=== PATIENT | male | born 1945 ===

== ENCOUNTER 2023-12-26 11:05 | Outpatient (REF) | payer MEDICARE, MEDICAID, SELFPAY ==
[2023-12-26 13:09] LABS: MANUAL DIFF FLAG NO
[2023-12-26 13:17] LABS: Basophils Percent Auto 0.6 % (0-2); Eosinophils Absolute Auto 0.1 X10*3/uL (0.0-0.4); Hematocrit 43.1 % (42.0-52.0); Hemoglobin 14.1 g/dl (14.0-18.0); Imm Gran Abs Auto 0.02 X10*3/uL (0.00-0.03); Imm Gran Pct Auto 0.3 % (0.0-0.4); Lymphocytes Absolute Auto 1.8 X10*3/uL (1.2-4.9); Lymphocytes Percent Auto 25.8 % (20-40); Mean Corpuscular HGB Conc 32.7 g/dl (31.0-36.0); Mean Corpuscular Hemoglobin 29.4 pg (27.0-33.0); Mean Platelet Volume 9.9 fL (9.4-12.4); Monocytes Absolute Auto 0.6 X10*3/uL (0.1-1.2); Monocytes Percent Auto 8.1 % (2-11); Neutrophils Absolute Auto 4.3 x10*3/uL (2.0-8.3); Neutrophils Percent Auto 64.2 % (45-73); Platelet Count 194 X10*3/uL (160-400); Red Blood Count 4.79 X10*6/uL (4.60-5.80); Red Cell Distribution Width 13.6 % (11.0-16.0); White Blood Count 6.8 X10*3/uL (4.8-10.8)
[2023-12-26 13:55] LABS: Creatinine Urine 283.61 mg/dL; Microalbum/Creatinine Ratio Ur 16.2 ug/mg cr (<30)
[2023-12-26 13:59] LABS: Alanine Aminotransferase 22 U/L (0-40); Albumin Level 4.1 g/dL (3.5-5.0); Alkaline Phosphatase 56 U/L (39-117); Anion Gap 15 (12-20); Aspartate Amino Transferase 22 U/L (5-37); Blood Urea Nitrogen 15 mg/dL (9-16); Calcium 9.9 mg/dL (8.4-10.2); Carbon Dioxide 25 mmol/L (22-29); Chloride 105 mmol/L (96-108); Cholesterol 140 mg/dL (<200); Estimated Glomerular Filt Rate > 60; Glucose Random 87 mg/dL (60-115); HDL Cholesterol 37 mg/dL (>40); LDL Cholesterol Calculated 88 mg/dL (<100); Potassium 4.4 mmol/L (3.3-5.1); Sodium 141 mmol/L (135-145); TSH reflex Free T4 3.59 uIU/mL (0.32-4.0); Total Protein 7.1 g/dL (6.5-8.0); Triglycerides 78 mg/dL (<150)
[2023-12-26 14:00] LABS: Folate 9.8 ng/mL (> or = 4.0); Vitamin B12 316 pg/mL (200-900)
[2023-12-27 09:33] LABS: RPR Rapid Plasma Reagin NON-REACTIVE (NON-REACTIVE)
== END 2023-12-26 11:06 | disposition home or self-care (01) ==
LOC: HO.HHCL 11:05
PROVIDERS: Visit Provider General Practice
DX: E11.40 Type 2 diabetes mellitus with diabetic neuropathy, unspecified (principal); R41.89 Other symptoms and signs involving cognitive functions and awareness; Z11.3 Encounter for screening for infections with a predominantly sexual mode of transmission; E08.29 Diabetes mellitus due to underlying condition with other diabetic kidney complication
CPT/HCPCS: 36415; 80053; 80061; 82043; 82570; 82607; 82746; 84443; 85025; 86592

== ENCOUNTER 2024-03-29 11:13 | Outpatient (REF) | payer MEDICARE, MEDICAID, SELFPAY ==
[2024-03-29 13:09] LABS: Vitamin B12 365 pg/mL (200-900)
[2024-03-30 04:04] LABS: Syphilis Screen Nonreactive (Nonreactive)
[2024-03-30 21:14] LABS: Lyme Abs Screen <0.90 index
== END 2024-03-29 11:14 | disposition home or self-care (01) ==
LOC: HO.LAB 11:13
PROVIDERS: Visit Provider Psychiatry & Neurology Neurology
DX: F03.90 Unspecified dementia, unspecified severity, without behavioral disturbance, psychotic disturbance, mood disturbance, and anxiety (principal)
CPT/HCPCS: 36415; 82607; 86617; 86618; 86780

== ENCOUNTER 2024-03-30 10:03 | Outpatient (REF) | payer MEDICARE, MEDICAID, SELFPAY ==
[2024-03-30 11:55] LABS: MANUAL DIFF FLAG NO
[2024-03-30 12:05] LABS: Basophils Percent Auto 0.7 % (0-2); Eosinophils Absolute Auto 0.1 X10*3/uL (0.0-0.4); Eosinophils Percent Auto 1.8 % (0-4); Hemoglobin 13.9 g/dl (14.0-18.0); Imm Gran Abs Auto 0.01 X10*3/uL (0.00-0.03); Imm Gran Pct Auto 0.2 % (0.0-0.4); Lymphocytes Absolute Auto 1.5 X10*3/uL (1.2-4.9); Lymphocytes Percent Auto 25.4 % (20-40); Mean Corpuscular HGB Conc 33.9 g/dl (31.0-36.0); Mean Corpuscular Hemoglobin 30.3 pg (27.0-33.0); Mean Corpuscular Volume 89.3 fL (80.0-98.0); Monocytes Absolute Auto 0.5 X10*3/uL (0.1-1.2); Monocytes Percent Auto 7.9 % (2-11); Neutrophils Absolute Auto 3.8 x10*3/uL (2.0-8.3); Platelet Count 189 X10*3/uL (160-400); Red Blood Count 4.59 X10*6/uL (4.60-5.80); Red Cell Distribution Width 13.5 % (11.0-16.0)
[2024-03-30 12:41] LABS: Alanine Aminotransferase 26 U/L (0-40); Alkaline Phosphatase 54 U/L (39-117); Anion Gap 10 (12-20); Aspartate Amino Transferase 20 U/L (5-37); Bilirubin Total 0.9 mg/dL (0.0-1.0); Blood Urea Nitrogen 14 mg/dL (9-16); Calcium 9.8 mg/dL (8.4-10.2); Carbon Dioxide 27 mmol/L (22-29); Chloride 107 mmol/L (96-108); Estimated Glomerular Filt Rate > 60; Glucose Random 88 mg/dL (60-115); Potassium 4.4 mmol/L (3.3-5.1); Sodium 140 mmol/L (135-145); Total Protein 6.9 g/dL (6.5-8.0)
== END 2024-03-30 10:04 | disposition home or self-care (01) ==
LOC: HO.HHCL 10:03
PROVIDERS: Visit Provider Internal Medicine
DX: L40.9 Psoriasis, unspecified (principal)
CPT/HCPCS: 36415; 80053; 85025

== ENCOUNTER 2025-01-22 14:01 | Outpatient (REF) | payer MEDICARE, MEDICAID, SELFPAY ==
--- OUTSIDE RECORDS SUMMARY | 2025-01-22 14:52 | XMS_ITS | Encounter Summary ---
Author Organization [employer] Address [address] [facility] [address] [place] [address] Care Team Providers Care Business Objects Analyst Name Role Phone Hortencia Gamboa MD Primary Care Provider [phone] Encounter Details Date Type Department Care Team (Late st Contact Info) Description 02/14/2024 Orders Only [facility] MEDICINE [address] [place], [place] [phone] Juan Koo MD [address] [place] [address] Social History Tobacco Use Types Packs/Day Years Used Date Smoking Tobacco: Never Passive Smoke Exposure: Never Smokeless Tobacco: Never Alcohol Use Standard Drinks/Week Comments Never 0 (1 standard drink = 0.6 oz pur e alcohol) Depression Answer Date Recorded Patient Health Questionnaire-9 Score 0 09/20/2023 Patient Health Questionnaire-9 Score 0 09/20/2023 Last PHQ-9: Questionnaire Data Not on file 0 09/20/2023 Housing Stability Answer Date Recorded What is your housing situation today? I have zaria mallory 09/20/[address] you li ve. Do you have problems with any of the following? None of the above 09/20/2023 Food Insecurity Answer Date Recorded Within the past 12 months, y ou worried that your food would run out before you got money to buy more: Never True 09/20/2023 Within the past 12 months,th e food you bought just didn't last and you didn't have enough money to get more: Never True 11/2023 Transportation Answer Date Recorded In the past 12 months, has l ack of transportation kept you from medical appts, meetings, work or from getting things needed for daily living? No 09/20/2023 Utilities Answer Date Recorded In the past 12 months, has t he electric, gas, oil or water company threatened to shut off services in your home? No 09/20/2023 Depression Answer Date Recorded Patient Health Questionnaire-2 Score 0 09/20/2023 Sex and Gender Information Value Date Recorded Sex Assigned at Male 05/17/2022 10:14 AM EDT Legal Sex Male 10:14 AM EDT Gender Identity Male 05/17/2022 10:14 AM EDT Sexual Orientation Choose not to disclose 2021 10:14 AM EDT documented as of this encounter Plan of Treatment Upcoming Encounters Date Type Department Care Team (Late st Contact Info) Description 02/12/2025 10:15 AM EDT Office Visit [facility] MED[facility]INE [address] [place] [id number] Hortencia Gamboa MD [address] [place] [address] documented as of this encounter Visit Diagnoses Not on filedocumented in this encounter Additional Health Concerns Assessment Noted Time PHQ-9 Depression Total Score: 0 09/20/19 24 9:48 AM EST documented as of this encounter Care Teams Business Objects Analyst Relationship Specialty Start Date End Date Hortencia Gamboa MD [address] [place] [id number] PCP - General Family Medicine 03/10/22 documented as of this encounter
--- OUTSIDE RECORDS SUMMARY | 2025-01-22 14:52 | XMS_ITS | Patient Health Record ---
Author Organization [facility] Address [address] [facility] [place] [address] Support Name Relationship Address Phone Esteban Scherer Guarantor Unknown Unav ailable Reason For Referral No Information Plan Of Treatment No Information Insurance Providers Payer Name Payer Address Payer Phone Subscriber Number Group Number Insured Name Patient Relationship to Insured Coverage Start Date Coverage End Date [facility] [address] [address] [place] [phone] [id number] Esteban Wood Self - patient is the insured
[2025-01-22 17:21] LABS: MANUAL DIFF FLAG NO
[2025-01-22 17:24] LABS: Appearance Urine Clear; Glucose Urine UA Negative (Negative); PH 6.5 (5.0-9.0); Specific Gravity - Urine 1.015 (1.005-1.025)
[2025-01-22 17:37] LABS: Hematocrit 40.9 % (42.0-52.0); Hemoglobin 13.6 g/dl (14.0-18.0); Imm Gran Abs Auto 0.03 X10*3/uL (0.00-0.03); Imm Gran Pct Auto 0.4 % (0.0-0.4); Lymphocytes Absolute Auto 1.6 X10*3/uL (1.2-4.9); Mean Corpuscular HGB Conc 33.3 g/dl (31.0-36.0); Mean Corpuscular Hemoglobin 29.8 pg (27.0-33.0); Mean Corpuscular Volume 89.7 fL (80.0-98.0); NRBC Abs Auto 0.000 X10*3/uL (0.0-0.012); NRBC Pct Auto 0.0 /100WBC (0.0-0.2); Platelet Count 225 X10*3/uL (160-400); Red Blood Count 4.56 X10*6/uL (4.60-5.80); White Blood Count 7.7 X10*3/uL (4.8-10.8)
[2025-01-22 17:54] LABS: Total Protein Urine Random < 7 mg/dL (<12)
[2025-01-22 18:01] LABS: Alanine Aminotransferase 33 U/L (0-40); Albumin Level 4.0 g/dL (3.5-5.0); Alkaline Phosphatase 60 U/L (39-117); Anion Gap 10 (12-20); Aspartate Amino Transferase 30 U/L (5-37); Blood Urea Nitrogen 16 mg/dL (9-16); Calcium 9.4 mg/dL (8.4-10.2); Carbon Dioxide 29 mmol/L (22-29); Chloride 104 mmol/L (96-108); Estimated Glomerular Filt Rate > 60; Potassium 4.4 mmol/L (3.3-5.1); Sodium 139 mmol/L (135-145); Total Protein 6.9 g/dL (6.5-8.0)
== END 2025-01-22 14:02 | disposition home or self-care (01) ==
LOC: HO.HHCL 14:01
PROVIDERS: PCP General Practice; Visit Provider Internal Medicine
DX: M79.89 Other specified soft tissue disorders (principal)
CPT/HCPCS: 36415; 80053; 81001; 82570; 84156; 85025; 85652; 86140

== ENCOUNTER 2025-02-21 12:22 | Outpatient (AMB) | payer MEDICARE, MEDICAID, SELFPAY ==
--- OUTSIDE RECORDS SUMMARY | 2016-02-27 05:48 | XMS_ITS | Continuity of Care Document ---
Author Organization [facility] Address [address] [place] [address] Phone Care Team Providers Care Pediatric Pathologist Name Role Phone Rafael Zuñiga MD Unavailable Unavailable Allergies, Adverse Reactions, Alerts Substance [...] [facility], [address] , [place], [place], [id number], [place] tel:[phone] [facility] No Information 6 [address] [place], [place], [id number] , [place]. tel:[phone] Office/outpt [facility], [address] , [place], [place], [id number], [place] tel:[phone] [facility] Memory Loss (chief complaint) Memory Loss 6 Zara Hall. [address], [place], [place], [id number] , [place]. tel: [phone] Referring Provider: Tj Feng [address], [place], [address]. tel:[phone] Family History Family Member Type Diagnosis Age At Onset Problem (finding) Family history of Heart Conditions Problem (finding) Family history of Diabe shimon Payers Payer name Insurance type Covered alliance party ID Authoriza tion(s) SIMPLY MEDICARE MB [id number] Social History Type Description Quantity Date Captured [...] No Information Instructions Date Instruction Additional Infor mation Open brain MRILabs Related to Me stefan Loss Assessments Type Assessment Date No Information Patient Care Teams Name Effective Dates (start - stop) Status Members No Information
--- NOTE | 2025-02-21 12:26 | A.OFFVIS_ITS ---
Intake Visit Reasons: dementia Allergies atorvastatin (From Lipitor) Allergy (Unknown, Verified 02/15/25 08:52) Unknown rosiglitazone (From Avandia) Allergy (Unknown, Verified 02/15/25 08:52) Unknown HPI Comments Details: 79 years old man with dementia with behavioral symptomatology including agitation. 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 Apparently he was getting more and more confused at night and sometime hallucinating and waking his up. [facility] Medical History (Updated 02/21/25 @ 12:28 by Liya Bush MD) Alzheimer disease Dementia without behavioral disturbance Review of Systems Const Details: Hallucinations and nighttime confusion. Physical Exam Neuro Other: Mental Status: Alert and awake mostly quite. Cranial Nerves: CN II: Visual patel full to confrontation, visual acuity intact. CN III, IV, : Pupils equal, round, reactive to light and accommodation. Extraocular movements are normal. CN V: Facial sensation is normal. CN VII: Facial movements symmetrical. CN VIII: Hearing intact to bedside conversation is normal. CN IX, X: Palate elevates symmetrically. CN XI: Shoulder shrug and head turn symmetrical. CN XII: Tongue midline without atrophy or fasciculations. Extrapyramidal: Full facial expressions and blinking. No rigidity. Movements are appropriate w ith no tremor or abnormality. Speech: Normal; no dysarthria or tremor. Assessment & Plan Assessment & Plan (1) Dementia with behavioral disturbance: Comment: MRI brain [facility] at [facility] in December 2021: Brain OK, left occipital extracranial mass (later removed). Code(s): F03.918 - Unspecified dementia, unspecified severity, with other behavioral disturbance Category: Medical Plan Impression: Dementia with behavioral symptoms Rec: a: Quetiapine 50mg 1-2 at bedtime Medications: New quetiapine 50 mg orally 1-2 at bedtime; 180 tabs 0RF Coding Level of Care Code Est Pt Level 4 (63494) Diagnoses Dementia with behavioral disturbance F03.918
--- OUTSIDE RECORDS SUMMARY | 2025-02-21 12:37 | XMS_ITS | Patient Health Record ---
Author Organization [facility] Address [address] [facility] [address] [place] [address] Support Name Relationship Address Phone Esteban Scherer Guarantor Unknown Unav ailable Reason For Referral No Information Plan Of Treatment No Information Insurance Providers Payer Name Payer Address Payer Phone Subscriber Number Group Number Insured Name Patient Relationship to Insured Coverage Start Date Coverage End Date [facility] [employer]. [address] [address] [place] [id number] [id number] Esteban Wood Self - patient is the insured
--- OUTSIDE RECORDS SUMMARY | 2025-02-21 12:37 | XMS_ITS | Encounter Summary ---
Author Organization [employer] Address [address] [facility] [address] [place] [address] Care Team Providers Care Powder Line Repairer Name Role Phone Hortencia Gamboa MD Primary Care Provider [phone] Encounter Details Date Type Department Care Team (Late st Contact Info) Description 02/14/2024 Orders Only [facility] MEDICINE [address] [place], [place] [phone] Juan Koo MD [address] [place] [address] Social History Tobacco Use Types Packs/Day Years [...] Care Team (Late st Contact Info) Description 06/19/2025 10:30 AM EST Office Visit [facility] [address] [place], [place] [phone] Saida Pak, OD [address] [place] [address] documented as of this encounter Visit Diagnoses Not on filedocumented in this encounter Additional Health Concerns Assessment Noted Time PHQ-9 Depression Total Score: 0 09/20/19 24 9:48 AM EST documented as of this encounter Care Teams Powder Line Repairer Relationship Specialty Start Date End Date Hortencia Gamboa MD [address] [place] [address] PCP - General Family Medicine 03/10/22 documented as of this encounter
== END 2025-02-21 12:33 | disposition home or self-care (01) ==
LOC: HO.HSM 12:23
PROVIDERS: Visit Provider Psychiatry & Neurology Neurology
DX: F03.918 Unspecified dementia, unspecified severity, with other behavioral disturbance (principal)
CPT/HCPCS: 99214

== ENCOUNTER → 2025-02-21 12:22 | Outpatient (BNVA) | payer MEDICARE, MEDICAID, SELFPAY | PROVIDERS: Visit Provider Psychiatry & Neurology Neurology | DX: F03.918 Unspecified dementia, unspecified severity, with other behavioral disturbance (principal) | CPT/HCPCS: 99212 ==

== ENCOUNTER 2025-05-14 09:40 | Outpatient (REF) | payer MEDICARE, MEDICAID, SELFPAY ==
--- OUTSIDE RECORDS SUMMARY | 2016-02-27 05:48 | XMS_ITS | Continuity of Care Document ---
Author Organization [facility] Address [address] [place] [address] Phone Care Team Providers Care Photoengraving Proofer Apprentice Name Role Phone Unavailable Unavailable Unavailable Allergies, [...] [facility], [address] , [place], [place], [id number], [place] tel:[phone] [facility] No Information 6 No Information Office/outpt [facility], [address], [place], [place], [id number], [place] tel:[phone] [facility] Memory Loss (chief complaint) Memory Loss 6 No Information Referring Provider: [facility] [address] [place], [address]. tel:[phone] Family History Family Member Type Diagnosis Age At Onset Problem (finding) Family history of Heart Conditions Problem (finding) Family history of Diabe shimon Payers Payer name Insurance type Covered democrat ID Authoriza tidevorah(s) SIMPLY MEDICARE MB [id number] Social History Type Description Quantity Date Captured [...]
--- OUTSIDE RECORDS SUMMARY | 2025-05-10 15:00 | XMS_ITS | Encounter Summary ---
Author Organization [employer] Address [address] [facility] [address] [place] [address] Care Team Providers Care Plate Slitter And Inspector Name Role Phone Hortencia Gamboa MD Primary Care Provider [phone] Encounter Details Date Type Department Care Team (Late st Contact Info) Description 05/10/2025 3:00 PM EDT Office Visit [facility] MEDICINE [address] [place] [address] Hortencia Gamboa MD [address] [place] [address] Edema of right foot (Primary Dx); Type 2 diabetes mellitus with diabetic neuropathy, without long-term current use of insulin (HCC); Primary hypertension; Hypertensive heart and chronic kidney disease with heart failure and stage 1 through stage 4 chronic kidney disease, or unspecified chronic kidney disease (HCC); Mild ankle edema Social History Tobacco Use Types Packs/Day Years Used Date Smoking Tobacco: Never Passive Smoke Exposure: Never Smokeless Tobacco: Never Tobacco Cessation:Counseling Given: Not Answered Alcohol Use Standard Drinks/Week Comments Never 0 (1 standard drink = 0.6 oz pur e alcohol) Depression Answer Date Recorded Patient Health Questionnaire-9 Score 02/12/2025 Patient Health Questionnaire-9 Score 02/12/2025 Last PHQ-9: Questionnaire Data Not on file 0 02/12/2025 Housing Stability Answer Date Recorded What is your housing situation today? I do not have housing (Staying with others, in a hotel, in a snf, living outside on the street, on a beach, in a car, or in a park 02/12/[address] you li ve. Do you have problems with any of the following? None of the above 02/12/2025 Food Insecurity Answer Date Recorded Within the past 12 months, y ou worried that your food would run out before you got money to buy more: Never True 02/12/2025 Within the past 12 months,th e food you bought just didn't last and you didn't have enough money to get more: Never True Transportation Answer Date Recorded In the past 12 months, has l ack of transportation kept you from medical appts, meetings, work or from getting things needed for daily living? No 02/12/2025 Utilities Answer Date Recorded In the past 12 months, has t he electric, gas, oil or water company threatened to shut off services in your home? No 02/12/2025 Depression Answer Date Recorded Patient Health Questionnaire-2 Score 5 02/12/2025 Internet Access Answer Date Recorded Internet Access Q1 No 02/12/2025 Internet Access Q2 Not on file 02/12/2025 Sex and Gender Information Value Date Recorded Sex Assigned at Male 05/17/2022 10:14 AM EDT Legal Sex Male 10:14 AM EDT Gender Identity Male 05/17/2022 10:14 AM EDT Sexual Orientation Choose not to disclose 2021 10:14 AM EDT documented as of this encounter Last Filed Vital Signs Vital Sign Reading Time Taken Comments Blood Pressure 140/70 05/10/2025 4:07 PM EDT Pulse 73 05/10/2025 2:59 PM EDT Temperature 36 C (96.8 F) 05/10/2025 2:59 PM EDT Respiratory Rate 16 05/10/2025 2:59 PM EDT Oxygen Saturation 100% 05/10/2025 2:59 PM EDT Inhaled Oxygen Concentration - - Weight 82.6 kg (182 lb) 05/10/2025 2:59 PM EDT Height 170.2 cm (5' 7 ) 05/10/2025 2:59 PM EDT Body Mass Index 28.51 05/10/2025 2:59 PM EDT documented in this encounter Progress Notes * Hortencia Gamboa MD - 05/10/2025 3:00 PM EDT Esteban Montalvo is a 79 y.o. male who presents for a acute visit due to right ankle swellingalong with foot swelling x2 weeks with erythema. Presents with his daughter Marito. HPI Right Ankle and Foot Swelling and Pain - Swelling and redness of right ankle and foot present for 2 weeks prior to visit - Noted by family member; patient lives with mother - Swelling described as unilateral, with darker discoloration compared to other foot - Pain rated 5-6/10, described as traveling down to foot when sitting - Pain present when sitting, not when standing or walking - Denies tenderness and warmth at the site - Denies shortness of breath and chest pain - No numbness or tingling reported - No calf pain - History of previous right ankle injury from a fall in [place] 6-7 years ago, resulting in limp and cane use - No hospital evaluation at time of injury - Uses Tylenol and arthritis pain pill for pain relief - Previously followed by contemporary or modern dancer, discontinued after bleeding incident during nail clipping - Use of cream and lotion for cracked heels, applied by mother - Change of sandals attempted to address symptoms, no improvement Hypertension: Elevated blood pressure reading during the visit. No chest pain, shortness of breath, changes of vision or dizziiness 110/73 at home 140/70- recheck Metoprolol 25 mg daily Lisinopril 2.5mg Aspirin 81 mg daily Plavix 75 mg daily TN- in the past, over 30 years- per daughters report. 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 Cardiovascular: Rate and Rhythm: Normal rate and regular rhythm. Heart sounds: Normal heart sounds, S1 normal and S2 normal. Pulmonary: Effort: Pulmonary effort is normal. No respiratory distress. Breath sounds: Normal breath sounds. No decreased air movement. Musculoskeletal: Right lower leg: Edema present. Comments: Non-pitting edema to the right lower extremity- chronic presentation with areas of hyperpigmentation No pain with ROM movements Strength test 5/5 No calf tenderness, neg H john's No palpable cord Neurological: Mental Status: He is alert. Psychiatric: Behavior: Behavior is cooperative. Assessment & Plan Type 2 diabetes mellitus with diabetic neuropathy, without long-term current use of insulin (HCC) Orders: POCT glucose manually resulted Edema of right foot Will order CBC: to rule out infection, inflammation; CMP: renal, hepatic function X-ray of the foot ordered Orders: XR Foot 3+ Views Right; Future XR Ankle 3+ Views Right; Future CBC auto differential; Future D Dimer High Sensitivity; Future Comprehensive Metabolic Panel; Future B Type Natriuretic Peptide (BNP); Future Primary hypertension BP well controlled at home. Continue with the medication therapy of Metoprolol 25 mg daily And Lisinopril 2.5mg Continue with home monitoring of the BP and report any new onset of headaches, dizzziness, or changes in vision. Hypertensive heart and chronic kidney disease with heart failure and stage 1 through stage 4 chronic kidney disease, or unspecified chronic kidney disease (HCC) Orders: B Type Natriuretic Peptide (BNP); Future Mild ankle edema X-ray of the right ankle ordered D-dimer- prior to the ultrasound Follow up if symptoms worsen or fail to improve. [facility] MARBLE INSTALLER Attestation MARBLE INSTALLER Resident Attestation: Patient was seen and evaluated by Jason RIVERA, in collaboration with Hortencia Gonzalez MD who has reviewed my assessment and plan. I, Hortencia Gonzalez MD , have reviewed the resident's note and agree with the assessment & plan ofcare as documented above. Visit Conducted in: Micronesian Translation by: lacy Leslie, per patient preference This note was drafted using Ambient (AI) technology. The patient/patient's guardian has been informed and has consented to the use of this technology: Yes documented in this encounter Miscellaneous Notes * Assessment & Plan Note - Hortencia Gamboa MD - 05/10/2025 3:00 PM EDTAssociated Problem(s): Type 2 diabetes mellitus with diabetic neuropathy, without long- term currentuse of insulin (HCC) Orders: POCT glucose manually resulted * Assessment & Plan Note - Hortencia Gamboa MD - 05/10/2025 3:00 PM EDTAssociated Problem(s): Hypertension BP well controlled at home. Continue with the medication therapy of Metoprolol 25 mg daily And Lisinopril 2.5mg Continue with home monitoring of the BP and report any new onset of headaches, dizzziness, or changes in vision. documented in this encounter Plan of Treatment Upcoming Encounters Date Type Department Care Team (Late st Contact Info) Description 06/19/2025 10:30 AM EST Office Visit [facility] OPTOMETRY [address] [place] [address] Pasha, Saida, OD [address] [place] [address] 07/24/2025 10:30 AM EST Office Visit [facility] MEDICINE [address] [place] [address] Hortencia Gamboa MD [address] [place] [address] Scheduled Orders Name Type Priority Associated Diagnoses Orde r Schedule POCT glucose manually resulted Point of Care Testing Routine Type 2 diabetes mellitus with diabetic neuropathy, without long-term current use of insulin (HCC) Ordered: 05/10/2025 CBC auto differential Lab Routine Edema of right foot Expected: 05/10/2025 (Approximate), Expires: 05/10/2026 D Dimer High Sensitivity Lab STAT Edema of right foot Expected: 05/10/2025, Expires: 05/10/2026 Comprehensive Metabolic Panel Lab Routine Edema of right foot Expected: 05/10/2025 (Approximate), Expires: 05/10/2026 B Type Natriuretic Peptide (BNP) Lab Routine Edema of right foot Hypertensive heart and chronic kidney disease with heart failure and stage 1 through stage 4 chronic kidney disease, or unspecified chronic kidney disease (HCC) Expected: 05/10/2025, Expires: 05/10/2026 documented as of this encounter Procedures Procedure Name Priority Date/Time Associated Diagnosis Comments XR FOOT 3+ VIEWS RIGHT Routine 05/14/2025 9:55 AM EDT Edema of right foot XR ANKLE 3+ VIEWS RIGHT Routine 05/14/2025 9:55 AM EDT Edema of right foot documented in this encounter Results * XR Ankle 3+ Views Right (05/14/2025 9:55 AM EDT) Anatomical Region Laterality Modality Lower Extremities, Ankle Right Radiogr aphic Imaging 05/14/2025 9:55 AM EDT Narrative 05/14/2025 10:07 AM EDT [address] [address] XRay Report Signed Patient: Esteban Oleary MR#: [id number] : 1945 Acct:[id number] Age/Sex: 79 / M ADM Date: 05/14/25 Loc: .[facility] Attending Dr: Hortencia Gamboa MD Ordering Physician: Hortencia Gamboa Date of Service: 05/14/25 Procedure(s): XR ankle RT min 3V Accession Number(s): [id number] cc: Hortencia Gamboa Reason for Exam: previous ankle injury with edema EXAMINATION: XR FOOT, RIGHT CLINICAL INFORMATION: Previous right foot injury with edema COMPARISON: None available. TECHNIQUE: AP, lateral, and oblique views of the right foot. FINDINGS: Lateral deviation of the first metatarsophalangeal joint. Degenerative changes in the foot. Small plantar calcaneal spur. Exostosis at the Achilles tendon insertion. No acute fracture or dislocation. No lytic or blastic lesions. Vascular calcifications. No subcutaneous emphysema. No joint effusion, anterior tibiotarsal bursa. XR/XR ankle RT min 3V IMPRESSION: Hallux valgus proximal deformity, first metatarsophalangeal joint. Atherosclerosis disease, peripheral. Enthesopathy, Achilles tendon. EXAMINATION: XR ANKLE, RIGHT CLINICAL INFORMATION: Previous right foot injury with edema COMPARISON: None available. TECHNIQUE: AP, lateral, and mortise views of the right ankle. FINDINGS: No acute cortical disruption or malalignment. No lytic or blastic lesions. Plantar calcaneal spur. Exostosis at the Achilles tendon insertion. No joint effusion. Vascular calcifications , peripheral. IMPRESSION: No acute fracture or dislocation. Enthesopathy, Achilles tendon. Small plantar calcaneal spur. Atherosclerosis disease, peripheral. Electronically signed by: Rigoberto Wynn MD 05/14/2025 10:05 AM EDT Dictated By: Rigoberto Mckenzie MD Signed By: <Electronically signed by Rigoberto Hutchison MD in OV> 05/14/25 1005 DD/ TD/TT: 05/14/25 1001 Fraud Prevention Analyst: Procedure Note Chloé, Image - 05/14/[address] [address] XRay Report Signed Patient: Hunter Oleary#: [id number] : 6Acct:[id number] Age/Sex: 79 / MADM Date: 05/14/25 Loc: [facility] Attending Dr: Hortencia Gamboa MD Ordering Physician: Hortencia Gamboa Date of Service: 05/14/25 Procedure(s): XR ankle RT min 3V Accession Number(s): [id number] cc: Hortencia Gamboa Reason for Exam: previous ankle injury with edema EXAMINATION: XR FOOT, RIGHT CLINICAL INFORMATION: Previous right foot injury with edema COMPARISON: None available. TECHNIQUE: AP, lateral, and oblique views of the right foot. FINDINGS: Lateral deviation of the first metatarsophalangeal joint. Degenerative changes in the foot. Small plantar calcaneal spur. Exostosis at the Achilles tendon insertion. No acute fracture or dislocation. No lytic or blastic lesions. Vascular calcifications. No subcutaneous emphysema. No joint effusion, anterior tibiotarsal bursa. XR/XR ankle RT min 3V IMPRESSION: Hallux valgus proximal deformity, first metatarsophalangeal joint. Atherosclerosis disease, peripheral. Enthesopathy, Achilles tendon. EXAMINATION: XR ANKLE, RIGHT CLINICAL INFORMATION: Previous right foot injury with edema COMPARISON: None available. TECHNIQUE: AP, lateral, and mortise views of the right ankle. FINDINGS: No acute cortical disruption or malalignment. No lytic or blastic lesions. Plantar calcaneal spur. Exostosis at the Achilles tendon insertion. No joint effusion. Vascular calcifications , peripheral. IMPRESSION: No acute fracture or dislocation. Enthesopathy, Achilles tendon. Small plantar calcaneal spur. Atherosclerosis disease, peripheral. Electronically signed by: Rigoberto Wynn MD 05/14/2025 10:05 AM EDT RP Dictated By: Rigoberto Mckenzie MD Signed By: <Electronically signed by Rigoberto Hutchison MDin OV> 05/14/25 1005 DD/ TD/TT: 05/14/25 1001 Fraud Prevention Analyst: Hortencia Gamboa MD IMG XR PROCEDURES Final Result * XR Foot 3+ Views Right (05/14/2025 9:55 AM EDT) Anatomical Region Laterality Modality Lower Extremities, Foot Right [facility] 05/14/2025 9:55 AM EDT Narrative 05/14/2025 10:07 AM EDT [address] [address] XRay Report Signed Patient: Esteban Oleary MR#: [id number] : 1945 Acct:[id number] Age/Sex: 79 / M ADM Date: 05/14/25 Loc: .[facility] Attending Dr: Hortencia Gamboa MD Ordering Physician: Hortencia Gamboa Date of Service: 05/14/25 Procedure(s): XR foot RT min 3V Accession Number(s): [id number] cc: Hortencia Gamboa Reason for Exam: Previous right foot injury with edema EXAMINATION: XR FOOT, RIGHT CLINICAL INFORMATION: Previous right foot injury with edema COMPARISON: None available. TECHNIQUE: AP, lateral, and oblique views of the right foot. FINDINGS: Lateral deviation of the first metatarsophalangeal joint. Degenerative changes in the foot. Small plantar calcaneal spur. Exostosis at the Achilles tendon insertion. No acute fracture or dislocation. No lytic or blastic lesions. Vascular calcifications. No subcutaneous emphysema. No joint effusion, anterior tibiotarsal bursa. XR/XR foot RT min 3V IMPRESSION: Hallux valgus proximal deformity, first metatarsophalangeal joint. Atherosclerosis disease, peripheral. Enthesopathy, Achilles tendon. EXAMINATION: XR ANKLE, RIGHT CLINICAL INFORMATION: Previous right foot injury with edema COMPARISON: None available. TECHNIQUE: AP, lateral, and mortise views of the right ankle. FINDINGS: No acute cortical disruption or malalignment. No lytic or blastic lesions. Plantar calcaneal spur. Exostosis at the Achilles tendon insertion. No joint effusion. Vascular calcifications , peripheral. IMPRESSION: No acute fracture or dislocation. Enthesopathy, Achilles tendon. Small plantar calcaneal spur. Atherosclerosis disease, peripheral. Electronically signed by: Rigoberto Wynn MD 05/14/2025 10:05 AM EDT RP Dictated By: Rigoberto Mckenzie MD Signed By: <Electronically signed by Rigoberto Hutchison MD in OV> 05/14/25 1005 DD/ 0955 TD/TT: 05/14/25 1001 Fraud Prevention Analyst: Procedure Note Donotuseinterpreter, Image - 05/14/2025 [place] [address] XRay Report Signed Patient: Hunter Oleary#: [id number] : 6Acct:[id number] Age/Sex: 79 / MADM Date: 05/14/25 Loc: .[facility] Attending Dr: Hortencia Gamboa MD Ordering Physician: Hortencia Gamboa Date of Service: 05/14/25 Procedure(s): XR foot RT min 3V Accession Number(s): [id number] cc: Hortencia Gamboa Reason for Exam: Previous right foot injury with edema EXAMINATION: XR FOOT, RIGHT CLINICAL INFORMATION: Previous right foot injury with edema COMPARISON: None available. TECHNIQUE: AP, lateral, and oblique views of the right foot. FINDINGS: Lateral deviation of the first metatarsophalangeal joint. Degenerative changes in the foot. Small plantar calcaneal spur. Exostosis at the Achilles tendon insertion. No acute fracture or dislocation. No lytic or blastic lesions. Vascular calcifications. No subcutaneous emphysema. No joint effusion, anterior tibiotarsal bursa. XR/XR foot RT min 3V IMPRESSION: Hallux valgus proximal deformity, first metatarsophalangeal joint. Atherosclerosis disease, peripheral. Enthesopathy, Achilles tendon. EXAMINATION: XR ANKLE, RIGHT CLINICAL INFORMATION: Previous right foot injury with edema COMPARISON: None available. TECHNIQUE: AP, lateral, and mortise views of the right ankle. FINDINGS: No acute cortical disruption or malalignment. No lytic or blastic lesions. Plantar calcaneal spur. Exostosis at the Achilles tendon insertion. No joint effusion. Vascular calcifications , peripheral. IMPRESSION: No acute fracture or dislocation. Enthesopathy, Achilles tendon. Small plantar calcaneal spur. Atherosclerosis disease, peripheral. Electronically signed by: Rigoberto Wynn MD 05/14/2025 10:05 AM EDT Dictated By: Rigoberto Mckenzie MD Signed By: <Electronically signed by Rigoberto Hutchison MDin OV> 05/14/25 1005 DD/ 0955 TD/TT: 05/14/25 1001 Fraud Prevention Analyst: Hortencia Gamboa MD IMG XR PROCEDURES Final Result documented in this encounter Visit Diagnoses Diagnosis Edema of right foot- Primary Type 2 diabetes mellitus with diabetic neuropathy, without long-term current use of insulin (HCC) Primary hypertension Unspecified essential hypertension Hypertensive heart and chronic kidney disease with heart failure and stage 1 through stage 4 chronic kidney disease, or unspecified chronic kidney disease (HCC) Mild ankle edema documented in this encounter Additional Health Concerns Assessment Noted Time PHQ-9 Depression Total Score: 22 025 11:13 AM EDT documented as of this encounter Care Teams Plate Slitter And Inspector Relationship Specialty Start Date End Date Hortencia Gamboa MD [address] [place] [address] PCP - General Family Medicine 03/10/22 documented as of this encounter
--- NOTE | ~2025-05-14 | XR_ITS ---
EXAMINATION: XR FOOT, RIGHT CLINICAL INFORMATION: Previous right foot injury with edema COMPARISON: None available. TECHNIQUE: AP, lateral, and oblique views of the right foot. FINDINGS: Lateral deviation of the first metatarsophalangeal joint. Degenerative changes in the foot. Small plantar calcaneal spur. Exostosis at the Achilles tendon insertion. No acute fracture or dislocation. No lytic or blastic lesions. Vascular calcifications. No subcutaneous emphysema. No joint effusion, anterior tibiotarsal bursa. XR/XR foot RT min 3V IMPRESSION: Hallux valgus proximal deformity, first metatarsophalangeal joint. Atherosclerosis disease, peripheral. Enthesopathy, Achilles tendon. EXAMINATION: XR ANKLE, RIGHT CLINICAL INFORMATION: Previous right foot injury with edema COMPARISON: None available. TECHNIQUE: AP, lateral, and mortise views of the right ankle. FINDINGS: No acute cortical disruption or malalignment. No lytic or blastic lesions. Plantar calcaneal spur. Exostosis at the Achilles tendon insertion. No joint effusion. Vascular calcifications , peripheral. IMPRESSION: No acute fracture or dislocation. Enthesopathy, Achilles tendon. Small plantar calcaneal spur. Atherosclerosis disease, peripheral. Electronically signed by: Rigoberto Wynn MD 05/14/2025 10:05 AM EDT
--- NOTE | ~2025-05-14 | XR_ITS ---
EXAMINATION: XR FOOT, RIGHT CLINICAL INFORMATION: Previous right foot injury with edema COMPARISON: None available. TECHNIQUE: AP, lateral, and oblique views of the right foot. FINDINGS: Lateral deviation of the first metatarsophalangeal joint. Degenerative changes in the foot. Small plantar calcaneal spur. Exostosis at the Achilles tendon insertion. No acute fracture or dislocation. No lytic or blastic lesions. Vascular calcifications. No subcutaneous emphysema. No joint effusion, anterior tibiotarsal bursa. XR/XR ankle RT min 3V IMPRESSION: Hallux valgus proximal deformity, first metatarsophalangeal joint. Atherosclerosis disease, peripheral. Enthesopathy, Achilles tendon. EXAMINATION: XR ANKLE, RIGHT CLINICAL INFORMATION: Previous right foot injury with edema COMPARISON: None available. TECHNIQUE: AP, lateral, and mortise views of the right ankle. FINDINGS: No acute cortical disruption or malalignment. No lytic or blastic lesions. Plantar calcaneal spur. Exostosis at the Achilles tendon insertion. No joint effusion. Vascular calcifications , peripheral. IMPRESSION: No acute fracture or dislocation. Enthesopathy, Achilles tendon. Small plantar calcaneal spur. Atherosclerosis disease, peripheral. Electronically signed by: Rigoberto Wynn MD 05/14/2025 10:05 AM EDT
[2025-05-14 11:09] LABS: MANUAL DIFF FLAG NO
--- OUTSIDE RECORDS SUMMARY | 2025-05-14 11:11 | XMS_ITS | Encounter Summary ---
Author Organization [employer] Address [address] [facility] [address] [place] [address] Care Team Providers Care Gill Box Tender Name Role Phone Hortencia Gamboa MD Primary Care Provider [phone] Encounter Details Date Type Department Care Team (Latest Contact Info) Description 05/10/2025 Travel Social History Tobacco Use Types Packs/Day Years Used Date Smoking Tobacco: Never Passive Smoke Exposure: Never Smokeless Tobacco: Never Alcohol Use Standard Drinks/Week Comments Never 0 (1 standard drink = 0.6 oz pur e alcohol) Depression Answer Date Recorded Patient Health Questionnaire-9 Score 22 02/12/2025 Patient Health Questionnaire-9 Score 22 02/12/2025 Last PHQ-9: Questionnaire Data Not on file 0 02/12/2025 Housing Stability Answer Date Recorded What is your housing situation today? I do not have housing (Staying with others, in a hotel, in a custodial, living outside on the street, on a [...] Description 06/19/2025 10:30 AM EST Office Visit [facility] OPTOMETRY [address] [place] [address] Pasha, Saida, OD [address] [place] [address] 07/24/2025 10:30 AM EST Office Visit [facility] MEDICINE [address] [place] [address] Hortencia Gamboa MD [address] [place] [address] documented as of this encounter Visit Diagnoses Not on filedocumented in this encounter Additional Health Concerns Assessment Noted Time PHQ-9 Depression Total Score: 22 025 11:13 AM EDT documented as of this encounter Care Teams Gill Box Tender Relationship Specialty Start Date End Date Hortencia Gamboa MD [address] [place] [address] PCP - General Family Medicine 03/10/22 documented as of this encounter
--- OUTSIDE RECORDS SUMMARY | 2025-05-14 11:11 | XMS_ITS | Encounter Summary ---
Author Organization [employer] Address [address] [facility] [address] [place] [address] Care Team Providers Care Schedule Analyst Name Role Phone Hortencia Gamboa MD Primary Care Provider [phone] Encounter Details Date Type Department Care Team (Late st Contact Info) Description 06/08/2024 Orders Only [facility] MEDICINE [address] [place], [place] [phone] Hortencia Gamboa MD [address] [place] [address] Social History Tobacco Use Types Packs/Day Years [...] 10:30 AM EST Office Visit [facility] OPTOMETRY [address] [place] [address] Pasha, Saida, OD [address] [place] [address] 07/24/2025 10:30 AM EST Office Visit [facility] MEDICINE [address] [place] [address] Hortencia Gamboa MD [address] [place] [address] documented as of this encounter Visit Diagnoses Not on filedocumented in this encounter Additional Health Concerns Assessment Noted Time PHQ-9 Depression Total Score: 0 09/20/19 24 9:48 AM EST documented as of this encounter Care Teams Schedule Analyst Relationship Specialty Start Date End Date Hortencia Gamboa MD [address] [place] [address] PCP - General Family Medicine 03/10/22 documented as of this encounter
--- OUTSIDE RECORDS SUMMARY | 2025-05-14 11:11 | XMS_ITS | Encounter Summary ---
Author Organization [employer] Address [address] [facility] [address] [place] [address] Care Team Providers Care Welding Machine Operator Helper Gas Name Role Phone Hortencia Gamboa MD Primary Care Provider [phone] Reason for Visit * Reason Comments Med Refill Encounter Details Date Type Department Care Team ([facility] Contact Info) Description 09/25/2024 Refill [facility] MEDICINE [address] [place] [address] Vanna Rosenbaum MD [address] [place], [place] [phone] Type 2 diabetes mellitus with hyperglycemia (CMS/HCC) Social History Tobacco Use Types Packs/Day Years [...] Description 06/19/2025 10:30 AM EST Office Visit [facility] OPTOMETRY [address] [place] [address] Pasha, Asida, OD [address] [place] [address] 07/24/2025 10:30 AM EST Office Visit [facility] MEDICINE [address] [place] [address] Hortencia Gamboa MD [address] [place] [address] documented as of this encounter Visit Diagnoses Diagnosis Type 2 diabetes mellitus with hyperglycemia (HCC) documented in this encounter Additional Health Concerns Assessment Noted Time PHQ-9 Depression Total Score: 0 09/20/19 24 9:48 AM EST documented as of this encounter Care Teams Welding Machine Operator Helper Gas Relationship Specialty Start Date End Date Hortencia Gamboa MD [address] [place] [address] PCP - General Family Medicine 03/10/22 documented as of this encounter
--- OUTSIDE RECORDS SUMMARY | 2025-05-14 11:11 | XMS_ITS | Encounter Summary ---
Author Organization [email or web address] Address [address] [facility] [address] [place] [address] Care Team Providers Care Electroless Plater Name Role Phone Hortencia Gamboa MD Primary Care Provider [phone] Encounter Details Date Type Department Care Team (Late st Contact Info) Description 02/14/2024 Orders Only [facility] MEDICINE [address] [place], [place] [id number] Juan Koo MD [address] [place], [place] [phone] Social History Tobacco Use Types Packs/Day Years [...] [facility] [address] [place] [address] Pasha, Saida, OD [address] [place] [address] 07/24/2025 10:30 AM EST Office Visit [facility] MEDICINE [address] [place] [address] Hortencia Gamboa MD [address] [place] [address] documented as of this encounter Visit Diagnoses Not on filedocumented in this encounter Additional Health Concerns Assessment Noted Time PHQ-9 Depression Total Score: 0 09/20/19 24 9:48 AM EST documented as of this encounter Care Teams Electroless Plater Relationship Specialty Start Date End Date Hortencia Gamboa MD [address] [place] [address] PCP - General Family Medicine 03/10/22 documented as of this encounter
--- OUTSIDE RECORDS SUMMARY | 2025-05-14 11:11 | XMS_ITS | Encounter Summary ---
Author Organization [email or web address] Address [address] [facility] [address] [place] [address] Care Team Providers Care Jewelry Estimator Name Role Phone Hortencia Gamboa MD Primary Care Provider Reason for Visit * Reason Onset Date Comments recall 05/09/2025 Encounter Details Date Type Department Care Team ([facility] Contact Info) Description 05/09/2025 Telephone [facility] MEDICINE [address] [place] [address] Hortencia Gamboa MD [address] [place] [address] recall Social History Tobacco Use Types Packs/Day Years [...] with others, in a hotel, in a longterm, living outside on the street, on a [...] AM EDT documented as of this encounter Miscellaneous Notes * Telephone Encounter - Tierra Carpio [place] - 05/09/2025 3:12 PM EDT T/C pt has been schedule for July 24 pt daughter who's on verbal release ok appointment * Telephone Encounter - Day Wolff - 05/09/2025 2:39 PM EDT Tc from pt Daughter retuning call, offer appointment for 07/24/25 at 4 pm , daughter denied appointment and for triage. * Telephone Encounter - Tierra Carpio [place] - 05/09/2025 2:30 PM EDT Telephone call to patient to schedule a recall appointment. No answer, Left voicemail to return call to clinic.. Recall letter sent. Visit type: Follow up Appointment notes: follow up Month due: May With: Cooper Please schedule appointment above if patient returns call documented in this encounter Plan of Treatment Upcoming Encounters Date Type Department Care Team (Late st Contact Info) Description 06/19/2025 10:30 AM EST Office Visit [facility] OPTOMETRY [address] [place] [address] Saida Pak, OD [address] [place] [address] 07/24/2025 10:30 AM EST Office Visit [facility] MEDICINE [address] [place] [address] Hortencia Gamboa MD [address] [place] [address] documented as of this encounter Visit Diagnoses Not on filedocumented in this encounter Additional Health Concerns Assessment Noted Time PHQ-9 Depression Total Score: 22 025 11:13 AM EDT documented as of this encounter Care Teams Jewelry Estimator Relationship Specialty Start Date End Date Hortencia Gamboa MD [address] [place] [address] PCP - General Family Medicine 03/10/22 documented as of this encounter
--- OUTSIDE RECORDS SUMMARY | 2025-05-14 11:11 | XMS_ITS | Clinical Summary ---
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 Name Role Phone Hortencia Gamboa MD Primary Care Provider [phone] Allergies Active Allergy Reactions Criticality Noted Date Comments Atorvastatin 03/24/2021 Other reaction(s): Chest pain Metformin 03/24/2021 Other reaction(s): Rash, Rash Pioglitazone 12/21/2011 Rosiglitazone 12/21/2011 Other reaction(s): Metformin adverse reaction Sertraline 03/24/2021 Other reaction(s): Drowsy Shellfish Allergy 11/30/2022 anaphylaxis Medications Blood Pressure Monitoring (Omron 3 Series BP Monitor) device USE DIRECTED Active Blood Pressure Monitor kit Use as directed 1 kit Active Blood Glucose Monitoring Suppl (Accu-Chek Nette Plus) w/Device kitIndications:T ype 2 diabetes mellitus with hyperglycemia, without long-term current use of insulin ([facility]) TEST BLOOD SUGAR TWICE DAILY DIRECTED 1 kit Active Blood Glucose Monitoring Suppl (FreeStyle Lite) device Inject 1 each under the skin 2 times daily. Use to check blood sugar 2x daily. 1 each Active ustekinumab (Stelara) 45 MG/0.5ML injectionIndicat ions:Psoriasis Inject 45 mg at 0 and 4 weeks and then 45 mg every 12 weeks thereafter 0.5 mL 11 Active clobetasol (Temovate) 0.05 % cream MIX WITH cerave AND APPLY A THIN LAYER TO AFFECTED AREA(S) TWICE DAILY 60 g 5 Active QUEtiapine (SEROquel) 25 MG tablet Take 25 mg by mouth at bedtime. Active FREESTYLE LITE test strip 1 each by Other route 4 times daily. Use to check blood sugar 2x daily. 100 each 12 Active TRUEplus Lancets 33G misc 1 each by Percutaneous route Once daily. 100 each 024 Active glucose blood (Accu-Chek Nette Plus) test stripIndications :Type 2 diabetes mellitus with hyperglycemia (HCC) Use to check BS once daily 100 strip 11 Active cholecalciferol (Vitamin D-3) 125 MCG (5000 UT) tabletIndication s:Vitamin D deficiency TAKE 1 TABLET BY MOUTH EVERY MORNING 90 tablet 3 025 Active Aspirin Low Dose 81 MG EC tablet TAKE 1 TABLET BY MOUTH EVERY MORNING 90 tablet 3 Active Trulicity 0.75 MG/0.5ML solution auto-injector INJECT ONE PEN (=0.75MG) SUBCUTANEOUSLY ONCE A WEEK DIRECTED 2 mL 11 Active Alcohol Swabs (Alcohol Prep) 70 % pads USE DIRECTED TO CLEAN SKIN TWICE DAILY 100 each 025 Active clopidogrel (Plavix) 75 MG tablet TAKE 1 TABLET BY MOUTH AT BEDTIME 90 tablet 3 025 Active metoprolol tartrate (Lopressor) 25 MG tablet TAKE 1/2 TABLET BY MOUTH TWICE DAILY IN THE MORNING AND AT BEDTIME 90 tablet 3 Active Diclofenac Sodium 1 % gel Apply 1 Application topically if needed in the morning, at noon, in the evening, and at bedtime (for hand pain). Apply to painful areas of hands. 150 g 5 025 Active Stelara injection INJECT 45 MG AT 0 AND 4 WEEKS, THEN INJECT 45 MG EVERY 12 WEEKS THEREAFTER Active ammonium lactate (Lac-Hydrin) 12 % lotion Apply topically if needed for dry skin. 400 g 3 025 Active simvastatin (Zocor) 20 MG tablet TAKE 1 TABLET BY MOUTH EVERY DAY AT BEDTIME 90 tablet 3 025 Active simvastatin (Zocor) 20 MG tablet TAKE 1 TABLET BY MOUTH AT BEDTIME 90 tablet 3 024 2024 Discontinued Active Problems Problem Noted Date Diagnosed Date Low back pain at multiple sites 06/05/2024 Assessment & Plan (06/05/2024 2:33 PM EST): Recommend use of cane Will walk more stably and comfortably this way Overweight with body mass in dex (BMI) of 28 to 28.9 in adult 12/26/2023 Assessment & Plan (06/05/2024 2:29 PM EST): Lifestyle modifications recommended of increasing exercise to 30 minutes daily Assessment & Plan (12/26/2023 8:19 AM EDT): Lifestyle modifications recommended Type 2 diabetes mellitus wit h diabetic neuropathy, without long-term current use of insulin 09/20/2023 Assessment & Plan (05/10/2025 4:13 PM EDT): Orders: POCT glucose manually resulted Assessment & Plan (02/13/2025 9:57 AM EDT): Current A1c: 6.3, continue Trulicity 0.75mg weekly BMP: Lab Results Component Value Date CREATININE 1.15 01/22/2025 K 4.4 01/22/2025 Microalbumin: Foot Exam: Complete at follow up Eye Exam: Discuss at follow up Lipid panel: ASCVD: Calculate pending updated labs Statin: Yes ASA: Yes LAVINIA/ARB: No Encouraged regular aerobic exercise for improved glycemic control Encouraged daily foot checks Encouraged lean protein snacks and to avoid foods high in sugar and simple carbohydrates Treatment Goals: A1c goal: <7% FBG goal: <130 2 hour post prandial goal: <180 Assessment & Plan (12/26/2023 8:18 AM EDT): Current A1c: 5.7, decrease Trulicity to 0.75mg daily BMP: Lab Results Component Value Date CREATININE 0.99 11/29/2022 K 4.8 11/29/2022 Microalbumin: Foot Exam: Complete at follow up Eye Exam: Discuss at follow up Lipid panel: ASCVD: Calculate pending updated labs Statin: Yes ASA: No LAVINIA/ARB: No Encouraged regular aerobic exercise for improved glycemic control Encouraged daily foot checks Encouraged lean protein snacks and to avoid foods high in sugar and simple carbohydrates Treatment Goals: A1c goal: <7% FBG goal: <130 2 hour post prandial goal: <180 Assessment & Plan (09/20/2023 12:30 PM EST): Current A1c: 5.7, decrease Trulicity to 0.75mg daily BMP: Lab Results Component Value Date CREATININE 0.99 11/29/2022 K 4.8 11/29/2022 Microalbumin: Foot Exam: Complete at follow up Eye Exam: Discuss at follow up Lipid panel: ASCVD: Calculate pending updated labs Statin: Yes ASA: No LAVINIA/ARB: No Encouraged regular aerobic exercise for improved glycemic control Encouraged daily foot checks Encouraged lean protein snacks and to avoid foods high in sugar and simple carbohydrates Treatment Goals: A1c goal: <7% FBG goal: <130 2 hour post prandial goal: <180 Impaired cognition 12/05/2021 Assessment & Plan (02/13/2025 9:56 AM EDT): Needs to schedule sleep study Taking Seroquel now for sleep, hallucinations He is active daily and his BP and blood sugars are well controlled TSH, folate, Vit B12 all within normal limits Will see neurology 02/2025 for consideration of treatment for dementia Assessment & Plan (06/05/2024 2:29 PM EST): Needs to schedule sleep study Taking Seroquel now for sleep, hallucinations He is active daily and his BP and blood sugars are well controlled TSH, folate, Vit B12 all within normal limits Will consult neurology for additional diagnostic clarity Assessment & Plan (12/26/2023 2:16 PM EDT): Needs to schedule sleep study is also concerned about MCI developing into dementia He is active daily and his BP and blood sugars are well controlled TSH, folate, Vit B12 all within normal limits Will consult neurology for additional diagnostic clarity Assessment & Plan (11/30/2022 6:45 AM EDT): Will reorder sleep study Vitamin D deficiency 03/12/2021 Assessment & Plan (04/06/2023 4:53 AM EDT): Continue 2000 international units daily Bilateral cataracts 08/23/2012 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 Sensorineural hearing loss, bilateral 08/23/2012 Anxiety state 12/17/2011 Assessment & Plan (06/05/2024 2:29 PM EST): Stable from mental health perspective, per pt Has established outpatient therapy Assessment & Plan (12/26/2023 2:15 PM EDT): Stable from mental health perspective, per pt Has established outpatient therapy Assessment & Plan (08/23/2023 12:41 PM EST): Stable from mental health perspective, per pt He is aware of upcoming appointment 09/20/23 and will reach out with any needs in the interim Assessment & Plan (04/06/2023 4:54 AM EDT): Due to family stressors Hypertension 12/17/2011 Assessment & Plan (05/10/2025 4:13 PM EDT): BP well controlled at home. Continue with the medication therapy of Metoprolol 25 mg daily And Lisinopril 2.5mg Continue with home monitoring of the BP and report any new onset of headaches, dizzziness, or changes in vision. Assessment & Plan (02/13/2025 9:55 AM EDT): Maintenance: at goal <140/90 at home, continue Metoprolol 12.5 mg BMP: Cr 0.99 Lipid Panel: Lab Results Component Value Date LDLCHOL 89 11/29/2022 ASCVD Risk: > 10% EKG: Obtain baseline at f/u - Aerobic exercise to reduce BP. Initial goal of 30 min walk 3-5x/week. Increase as tolerated. - low-sodium diet (goal: <2g/day) and heart healthy diet such as DASH to reduce BP and prevent ASCVD. - Home BP monitoring 1-2 x day with goal of <140/90. - Seek immediate medical attention for chest pain, palpitations, SOB, syncope, or sudden changes in mental status. - Do not change or discontinue current prescriptions without first consulting health care provider Assessment & Plan (06/05/2024 2:28 PM EST): Maintenance: at goal <140/90, continue Metoprolol 12.5 mg, and STOP Lisinopril BMP: Cr 0.99 Lipid Panel: Lab Results Component Value Date LDLCHOL 89 11/29/2022 ASCVD Risk: > 10% EKG: Obtain baseline at f/u - Aerobic exercise to reduce BP. Initial goal of 30 min walk 3-5x/week. Increase as tolerated. - low-sodium diet (goal: <2g/day) and heart healthy diet such as DASH to reduce BP and prevent ASCVD. - Home BP monitoring 1-2 x day with goal of <140/90. - Seek immediate medical attention for chest pain, palpitations, SOB, syncope, or sudden changes in mental status. - Do not change or discontinue current prescriptions without first consulting health care provider Assessment & Plan (12/26/2023 8:18 AM EDT): Maintenance: at goal <140/90, continue Metoprolol 12.5 mg, and decrease Lisinopril to 2.5 mg daily BMP: Cr 0.99 Lipid Panel: Lab Results Component Value Date LDLCHOL 89 11/29/2022 ASCVD Risk: > 10% EKG: Obtain baseline at f/u - Aerobic exercise to reduce BP. Initial goal of 30 min walk 3-5x/week. Increase as tolerated. - low-sodium diet (goal: <2g/day) and heart healthy diet such as DASH to reduce BP and prevent ASCVD. - Home BP monitoring 1-2 x day with goal of <140/90. - Seek immediate medical attention for chest pain, palpitations, SOB, syncope, or sudden changes in mental status. - Do not change or discontinue current prescriptions without first consulting health care provider Assessment & Plan (09/20/2023 12:31 PM EST): Maintenance: at goal <140/90, continue Metoprolol 12.5 mg, and decrease Lisinopril to 2.5 mg daily BMP: Cr 0.99 Lipid Panel: Lab Results Component Value Date LDLCHOL 89 11/29/2022 ASCVD Risk: > 10% EKG: Obtain baseline at f/u - Aerobic exercise to reduce BP. Initial goal of 30 min walk 3-5x/week. Increase as tolerated. - low-sodium diet (goal: <2g/day) and heart healthy diet such as DASH to reduce BP and prevent ASCVD. - Home BP monitoring 1-2 x day with goal of <140/90. - Seek immediate medical attention for chest pain, palpitations, SOB, syncope, or sudden changes in mental status. - Do not change or discontinue current prescriptions without first consulting health care provider Assessment & Plan (04/06/2023 4:52 AM EDT): Maintenance: at goal <140/90, continue Metoprolol and Lisinopril BMP: Cr 0.99 Lipid Panel: Lab Results Component Value Date LDLCHOL 89 11/29/2022 ASCVD Risk: > 10% EKG: Obtain baseline at f/u - Aerobic exercise to reduce BP. Initial goal of 30 min walk 3-5x/week. Increase as tolerated. - low-sodium diet (goal: <2g/day) and heart healthy diet such as DASH to reduce BP and prevent ASCVD. - Home BP monitoring 1-2 x day with goal of <140/90. - Seek immediate medical attention for chest pain, palpitations, SOB, syncope, or sudden changes in mental status. - Do not change or discontinue current prescriptions without first consulting health care provider Assessment & Plan (11/30/2022 6:44 AM EDT): Maintenance: at goal <140/90 BMP: Cr 0.99 Lipid Panel: LDL ASCVD Risk: Calculate pending updated labs EKG: Obtain baseline at f/u - Aerobic exercise to reduce BP. Initial goal of 30 min walk 3-5x/week. Increase as tolerated. - low-sodium diet (goal: <2g/day) and heart healthy diet such as DASH to reduce BP and prevent ASCVD. - Home BP monitoring 1-2 x day with goal of <140/90. - Seek immediate medical attention for chest pain, palpitations, SOB, syncope, or sudden changes in mental status. - Do not change or discontinue current prescriptions without first consulting health care provider Psoriasis 12/17/2011 Assessment & Plan (12/26/2023 8:19 AM EDT): Well controlled with Humira Ordered more steroid for remaining hyperpigmented lesions on back Assessment & Plan (04/06/2023 4:54 AM EDT): Well controlled with Humira Ordered more steroid for remaining hyperpigmented lesions on back Assessment & Plan (11/30/2022 6:45 AM EDT): Well controlled with Humira Pure hypercholesterolemia 12/17/2011 Resolved Problems Problem Noted Date Diagnosed Date Resolved Date DM (diabetes mellitus) 11/18/202206/05 Assessment & Plan (04/06/2023 4:53 AM EDT): At goal <7.0 Continue Trulicity 1.5mg weekly Continue podiatry f/u Normal eye exam in 2021 Assessment & Plan (11/30/2022 6:45 AM EDT): At goal <7.0 Continue Trulicity 1.5mg weekly Continue podiatry f/u Normal eye exam in 2021 Encounters Date Type Department Care Team Description 05/10/2025 3:00 PM EDT Office Visit [facility] MEDICINE [address] [place] [phone] Hortencia Gamboa MD Edema of right foot (Primary Dx); Type 2 diabetes mellitus with diabetic neuropathy, without long-term current use of insulin (HCC); Primary hypertension; Hypertensive heart and chronic kidney disease with heart failure and stage 1 through stage 4 chronic kidney disease, or unspecified chronic kidney disease (HCC); Mild ankle edema 05/10/2025 Travel 05/09/2025 Telephone [facility] MEDICINE [address] [place] [phone] Hortencia Gamboa MD Nurse Triage 05/09/2025 Telephone [facility] MEDICINE [address] [place] [phone] Hortencia Gamboa MD 05/09/2025 Telephone [facility] MEDICINE [address] [place] [phone] Hortencia Gamboa MD recall 04/14/2025 Refill [facility] MED & PEDS [address] [place], [place] [phone] Hortencia Gamboa MD 02/12/2025 10:15 AM EDT Office Visit [facility] MEDICINE [address] [place] [address] Hortencia Gamboa MD Primary hypertension (Primary Dx); Dietary counseling; Exercise counseling; Type 2 diabetes mellitus with diabetic neuropathy, without long-term current use of insulin ([facility]); Pure hypercholesterolemia; Sensorineural hearing loss, bilateral; Overweight with body mass index (BMI) of 28 to 28.9 in adult; Impaired cognition; Psoriasis 02/12/2025 Travel from Last 3 Months Immunizations Immunization Administration Dates Next Due Hep A, Adult 05/14/2022,09/06/2012 Hep B, adult 02/19/2022,,10/05/2012,09/06 Influenza High-dose Quadriva lent Preservative Free 04/04/2023,05/14/2022,04/22/2021 Influenza, IIV3, injectable 08/18/2012, 7 PrePayMe SARS-CoV-2 Vaccination 10/19/2020 Pfizer Covid-19 Vaccine 12+ 09/20/2023 Pneumococcal Conjugate PCV 13 12/25/2021 Pneumococcal Conjugate PCV 20 09/20/2023 Pneumococcal Polysaccharide PPSV23 07/25/2000 TD (adult), 2 Lf tetanus tox oid, preservative free, adsorbed 05/07/1998 Tdap 12/25/2021 Zoster, Recombinant 05/28/2021,03/25/2021 Family History Medical History Relation Name Comments Diabetes Mother Diabetes Sister Heart attack Sister Relation Name Status Comments Mother Sister Social History Tobacco Use Types Packs/Day Years [...] with others, in a hotel, in a assisted, living outside on the street, on a [...] not to disclose 2021 10:14 AM EDT Last Filed Vital Signs Vital Sign Reading [...] Mass Index 28.51 05/10/2025 2:59 PM EDT Plan of Treatment Upcoming Encounters Date Type Department Care Team (Late st Contact Info) Description 06/19/2025 10:30 AM EST Office Visit [facility] OPTOMETRY [address] [place] [address] Saida Pak, OD [address] [place] [address] 07/24/2025 10:30 AM EST Office Visit [facility] MEDICINE [address] [place] [address] Hortencia Gamboa MD [address] [place] [address] Health Maintenance Due Date Last Done Comments RSV Patients and Patients Aged 60 years or older (1 - 1-dose 75+ series) 2020 Diabetes: Foot Exam 09/19/2024 09/20/2023, 09/20/2023, 09/20/2023, Additional history exists Lipid Panel 12/25/2024 12/26/2023, 11/15, 08/19/2021, Additional history exists Depression Monitoring 08/15/2025 02/12/2025, 025 Diabetes: Hemoglobin A1C 08/15/2025 025, 06/04/2024, 12/26/2023, Additional history exists COVID-19 Vaccine ( season) 2025 04/05/2025, 09/20/2023, 08/19/2021, Additional history exists Diabetes: Urine Protein Screening 01/22/2026 01/22/2025, 12/26/2023, 11/29/2022, Additional history exists Eye Exam 01/29/2026 01/30/2024, 01/15, 01/30/2024, Additional history exists Alcohol/Substance Use Screening 02/12/2026 02/12/2025 SDOH Screening 02/12/2026 02/12/2025 Tobacco Screening 05/10/2026 05/10/2025 DTaP/Tdap/Td Vaccines (2 - Td or Tdap) 12/26/2031 12/25/2021, 05/07/1998 Zoster Vaccines Completed 05/28/2021, 03/25/2021 Hepatitis C Screening Completed 08/19/2021 Hepatitis B Vaccines Completed 02/19/2022, 03/25/2021, 10/05/2012, Additional history exists Hepatitis A Vaccines Aged Out 05/14/2022, 09/06/19 13 No longer eligible based on patient's age to complete this topic Pneumococcal Vaccine: 50+ Years Completed 09/20/2023, 12/25/2021, 07/25/2000 Influenza Vaccine Completed 04/05/2025, , 05/14/2022, Additional history exists HIB Vaccines Aged Out No longer eligi ble based on patient's age to complete this topic HPV Vaccines Aged Out No longer eligi ble based on patient's age to complete this topic IPV Vaccines Aged Out No longer eligi ble based on patient's age to complete this topic Meningococcal B Vaccine Aged Out No l onger eligible based on patient's age to complete this topic Meningococcal Vaccine Aged Out No radha neel eligible based on patient's age to complete this topic RSV under 20 months Aged Out No longe r eligible based on patient's age to complete this topic Rotavirus Vaccines Aged Out No longer eligible based on patient's age to complete this topic Procedures Procedure Name Priority Date/Time Associated Diagnosis Comments XR ANKLE 3+ VIEWS RIGHT Routine 05/14/2025 9:55 AM EDT Edema of right foot XR FOOT 3+ VIEWS RIGHT Routine 05/14/2025 9:55 AM EDT Edema of right foot POCT GLYCATED HEMOGLOBIN, TOTAL Routine 02/12/2025 11:10 AM EDT Type 2 diabetes mellitus with diabetic neuropathy, without long-term current use of insulin ([facility]) POCT GLUCOSE Routine 02/12/2025 11:08 AM EDT Type 2 diabetes mellitus with diabetic neuropathy, without long-term current use of insulin ([facility]) PROTEIN CREATININE RATIO, URINE Routine 01/22/2025 2:08 PM EDT Bilateral hand swelling LIPID PANEL, STANDARD Routine 12/26/2023 11:08 AM EDT Type 2 diabetes mellitus with diabetic neuropathy, without long-term current use of insulin (CMS/HCC) ZZZ HISTORICAL HEPATITIS C AB W/REFL TO HCV RNA, QN, PCR Routine 08/19/2021 10:58 AM EST from Last 3 Months or Most Recently Relevant to Health Maintenance Results * XR Foot 3+ Views Right (05/14/2025 9:55 AM EDT) Anatomical Region Laterality Modality Lower Extremities, Foot Right Radiogra phic Imaging 05/14/2025 9:55 AM EDT Narrative 05/14/2025 10:07 AM EDT [place] [address] XRay Report Signed Patient: Esteban Oleary MR#: [id number] : 1945 Acct:[id number] Age/Sex: 79 / M ADM Date: 05/14/25 Loc: .[facility] Attending Dr: Hortencia Gamboa MD Ordering Physician: Hortencia Gamboa Date of Service: 05/14/25 Procedure(s): XR foot RT min 3V Accession Number(s): [id number] cc: Hortencia Gamboa Reason for Exam: Previous [...] 05/14/25 1005 DD/ 0955 TD/TT: 05/14/25 1001 Aircraft Electronics 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 Officer: Procedure Note Donotuseinterpreter, Image - 05/14/2025 [place] [address] XRay Report Signed Patient: Hunter Oleary#: [id number] : 6Acct:[id number] Age/Sex: 79 / MADM Date: 05/14/25 Loc: [facility] Attending Dr: Hortencia Gamboa MD Ordering Physician: Hortencia Gamboa Date of Service: 05/14/25 Procedure(s): XR foot RT min 3V Accession Number(s): [id number] cc: Hortencia Gamboa Reason for Exam: Previous [...] OV> 05/14/25 1005 DD/ TD/TT: 05/14/25 1001 Aircraft Electronics Technical Officer: Hortencia Gamboa MD IMG XR PROCEDURES Final Result * XR Ankle 3+ Views Right (05/14/2025 9:55 AM EDT) Anatomical Region Laterality Modality Lower Extremities, Ankle Right Radiogr aphic Imaging 05/14/2025 9:55 AM EDT Narrative 05/14/2025 10:07 AM EDT [address] [address] XRay Report Signed Patient: Esteban Oleary MR#: [id number] : 1945 Acct:[id number] Age/Sex: 79 / M ADM Date: 05/14/25 Loc: [facility] Attending Dr: Hortencia Gamboa MD Ordering Physician: Hortencia Gamboa Date of Service: 05/14/25 Procedure(s): XR ankle RT min 3V Accession Number(s): [id number] cc: Hortencia Gamboa Reason for Exam: previous [...] 05/14/25 1005 DD/ 0955 TD/TT: 05/14/25 1001 Aircraft Electronics Technical Officer: Procedure Note Donotuseinterpreter, Image - 05/14/2025 [place] [address] XRay Report Signed Patient: Hunter Oleary#: [id number] : 6Acct:[id number] Age/Sex: 79 / MADM Date: 05/14/25 Loc: .[facility] Attending Dr: Hortencia Gamboa MD Ordering Physician: Hortencia Gamboa Date of Service: 05/14/25 Procedure(s): XR ankle RT min 3V Accession Number(s): [id number] cc: Hortencia Gamboa Reason for Exam: previous [...] 05/14/25 1005 DD/ 0955 TD/TT: 05/14/25 1001 [employer] Technical Officer: Hortencia Gamboa MD IMG XR PROCEDURES Final Result * (ABNORMAL) POCT HGB A1C (02/12/2025 11:10 AM EDT) Hemoglobin A1C 6.3(A) 4.0 - 5.7 % QC Media Lot # [id number] Lot# Expiration Date 3, Blood 02/12/2025 11:1 0 AM EDT Hortencia Gamboa MD POINT OF CARE TEST ENTER/EDIT ORDERABLES Final Result * POCT Glucose (02/12/2025 11:08 AM EDT) Glucose Blood, POC 119 60 - 200 mg/dL QC Media Lot # [id number] Lot# Expiration Date 22,726 Blood Capillary blood specimen / Unknown 02/12/2025 11:08 AM EDT us Hortencia Gamboa MD POINT OF CARE TEST ENTER/EDIT ORDERABLES Final Result * Protein Creatinine Ratio, Urine (01/22/2025 2:08 PM EDT) Creatinine, Urine 83.87 mg/dL [facility] Protein, Total, Random Urine <7 <12 mg/dL [facility] Protein/Creatin ine Ratio, Ur TNP <0.2 [facility] Comment:Unable to calculate urine protein creatinine ratio due tolow creatinine or protein result. 01/22/2025 2:08 PM EDT 01/22/2025 5:14 PM EDT us Elizabeth Rogers MD LAB URINE ORDERABLES Final Re sult [facility] [address] [place] [phone] * (ABNORMAL) Lipid Panel, Standard (12/26/2023 11:08 AM EDT) Triglycerides 78 <150 mg/dL [facility] Comment:Desirable Triglyceri de: less than 150 mg/dLBorderline High Triglyceride 150-199 mg/dLHigh Triglyceride: 200-499 mg/dLVery High Triglyceride: greater than or equal to 5OO mg/dL Cholesterol 140 <200 mg/dL [facility] Comment:Desirable Cholestero l: less than 200 mg/dLBorderline High Cholesterol: 200-239 mg/dLHigh Cholesterol: greater than 239 mg/dL LDL Cholesterol Calculated 88 <100 mg/dL [facility] Comment:Desirable LDL: less than 100 mg/dLNear Optimal/Above Optimal LDL: 110- 129 mg/dLBorderline High LDL: 130-159 mg/dLHigh LDL: 160-189 mg/dLVery High LDL: greater than or equal to 190 mg/dL HDL Cholesterol 37(L) >40 mg/dL [facility] Comment:Desirable HDL: great er than 40 mg/dL Note: This HDL assay may give artificially low results in patients with liver disease. Blood Venous blood specimen / Unknown 12/26/2023 11:08 AM EDT 12/26/2023 1:05 PM EDT us Hortencia Gamboa MD LAB BLOOD ORDERABLES Final Res ult [facility] [address] [place] [phone] [phone] * HEPATITIS C AB W/REFL TO HCV RNA, QN, PCR (08/19/2021 10:58 AM EST) HEPATITIS C ANTIBODY NON-REACT SUAD NON-REACT [facility] INDEX 0.02 <1.00 [facility] Comment: HCV antibody was non-reactive. There is no laboratory evidence of HCV infection. In most cases, no further action is required. However, if recent HCV exposure is suspected, a test for HCV RNA (test code 61200) is suggested. 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
--- OUTSIDE RECORDS SUMMARY | 2025-05-14 11:11 | XMS_ITS | Encounter Summary ---
Author Organization [employer] Address [address] [facility] 7t [place] [address] Care Team Providers Care Distance Learning Coordinator Name Role Phone Hortencia Gamboa MD Primary Care Provider [phone] Encounter Details Date Type Department Care Team (Late st Contact Info) Description 05/09/2025 Telephone [facility] MEDICINE [address] [place], [place] [phone] Hortencia Gamboa MD [address] [place], [place] [phone] Social History Tobacco Use Types Packs/Day Years [...] with others, in a hotel, in a [facility], living outside on the street, on a [...] Description 06/19/2025 10:30 AM EST Office Visit [facility] OPTOMETRY [address] [place] [address] Pasha, Saida, OD [address] [place] [address] 07/24/2025 10:30 AM EST Office Visit [facility] MEDICINE [address] [place] [address] Hortencia Gamboa MD [address] [place] [address] documented as of this encounter Visit Diagnoses Not on filedocumented in this encounter Additional Health Concerns Assessment Noted Time PHQ-9 Depression Total Score: 22 025 11:13 AM EDT documented as of this encounter Care Teams Distance Learning Coordinator Relationship Specialty Start Date End Date Hortencia Gamboa MD [address] [place] [address] PCP - General Family Medicine 03/10/22 documented as of this encounter
--- OUTSIDE RECORDS SUMMARY | 2025-05-14 11:11 | XMS_ITS | Encounter Summary ---
Author Organization [employer] Address [address] [facility] 7[address] [place] [address] Care Team Providers Care Walnut Dehydrator Operator Name Role Phone Hortencia Gamboa MD Primary Care Provider [phone] Reason for Visit * Reason Onset Date Comments Nurse Triage 05/09/2025 Encounter Details Date Type Department Care Team ([facility] Contact Info) Description 05/09/2025 Telephone [facility] MEDICINE [address] [place] [address] Hortencia Gamboa MD [address] [place] [address] Nurse Triage Social History Tobacco Use Types Packs/Day Years [...] with others, in a hotel, in a [facility], living outside on the street, on a [...] encounter Miscellaneous Notes * Telephone Encounter - Joy Stewart RN - 05/09/2025 2:39 PM EDT TC placed to pt's daughter (on HIPAA) for triage. Pt's daughter reports pt has had right ankle and foot swelling x 2 weeks. Pt's daughter reports pt was hiding it from them so they were not aware of the swelling. Pt does endorse pain per pt's daughter and rates it at a 5-6/10. Pt's daughter reportsmoderate swelling. Pt's daughter reports there is redness to pt's foot. Pt's daughter reports they needed to purchase wider socks for pt to fit foot/ankle. Pt's daughter denies any injury, fever, rash, wound to foot or ankle. Pt's daughter states pt sometimes takes tylenol for the pain but not consistently. Advised to bring to [facility]. Pt's daughter reports they are unable to bring pt today and needsan afternoon appointment tomorrow. Pt booked with Nicky on 05/10/25 at 3:00 PM. Pt's daughter agreeable to appointment. Protocol Used: Ankle Swelling (Adult) Protocol-Based Disposition: See in Office or Video Visit within 3 Days Positive Triage Question: * Moderate ankle swelling (e.g., can't move joint normally, interferes with normal activities) (Exceptions: Itchy, localized swelling; swelling is chronic.) * All higher-acuity triage questions were negative Care Advice Discussed: * Reasons To Call Back - Severe pain lasts over 2 hours after pain medicine - Ankle becomes red or very painful - Ankle becomes very swollen - Fever occurs - You become worse * Telephone Encounter - Day Wolff - 05/09/2025 2:36 PM EDT Symptom: Foot or Ankle Swelling Outcome: Schedule an urgent appointment (within 1 hour) or talk to a nurse or provider soon Reason: Trouble walking The caller accepted this outcome. Contact pt Daughter at [phone] documented in this encounter Plan of Treatment Upcoming Encounters Date Type Department Care Team (Late st Contact Info) Description 06/19/2025 10:30 AM EST Office Visit [facility] OPTOMETRY [address] [place] [address] Pasha, Saida, OD [address] [place] [address] 07/24/2025 10:30 AM EST Office Visit [facility] MEDICINE [address] [place] [address] Hortencia Gamboa MD [address] [place] [address] documented as of this encounter Visit Diagnoses Not on filedocumented in this encounter Additional Health Concerns Assessment Noted Time PHQ-9 Depression Total Score: 22 025 11:13 AM EDT documented as of this encounter Care Teams Walnut Dehydrator Operator Relationship Specialty Start Date End Date Hortencia Gamboa MD [address] [place] [address] PCP - General Family Medicine 03/10/22 documented as of this encounter
[2025-05-14 11:16] LABS: Hematocrit 40.4 % (42.0-52.0); Hemoglobin 13.1 g/dl (14.0-18.0); Imm Gran Abs Auto 0.02 X10*3/uL (0.00-0.03); Imm Gran Pct Auto 0.3 % (0.0-0.4); Lymphocytes Absolute Auto 2.1 X10*3/uL (1.2-4.9); Mean Corpuscular HGB Conc 32.4 g/dl (31.0-36.0); Mean Corpuscular Hemoglobin 29.2 pg (27.0-33.0); Mean Corpuscular Volume 90.2 fL (80.0-98.0); NRBC Abs Auto 0.000 X10*3/uL (0.0-0.012); NRBC Pct Auto 0.0 /100WBC (0.0-0.2); Platelet Count 197 X10*3/uL (160-400); Red Blood Count 4.48 X10*6/uL (4.60-5.80); White Blood Count 7.4 X10*3/uL (4.8-10.8)
[2025-05-14 11:29] LABS: D Dimer High Sensitivity 269 NG/ML
[2025-05-14 11:32] LABS: Alanine Aminotransferase 27 U/L (0-40); Albumin Level 4.0 g/dL (3.5-5.0); Alkaline Phosphatase 58 U/L (39-117); Anion Gap 10 (12-20); Aspartate Amino Transferase 27 U/L (5-37); Blood Urea Nitrogen 15 mg/dL (9-16); Calcium 9.5 mg/dL (8.4-10.2); Carbon Dioxide 27 mmol/L (22-29); Chloride 108 mmol/L (96-108); Estimated Glomerular Filt Rate > 60; Potassium 4.2 mmol/L (3.3-5.1); Sodium 141 mmol/L (135-145); Total Protein 7.0 g/dL (6.5-8.0)
== END 2025-05-14 09:41 | disposition home or self-care (01) ==
LOC: HO.HHCL 09:40
PROVIDERS: PCP General Practice; Visit Provider General Practice
DX: Z13.89 Encounter for screening for other disorder (principal)
CPT/HCPCS: 36415; 73610; 73630; 80053; 85025; 85379

== ENCOUNTER → 2025-05-14 09:44 | Outpatient (BNV) | payer MEDICARE, MEDICAID, SELFPAY | PROVIDERS: PCP General Practice; Visit Provider Radiology Diagnostic Radiology | DX: M77.51 Other enthesopathy of right foot and ankle (principal); M77.31 Calcaneal spur, right foot; I70.201 Unspecified atherosclerosis of native arteries of extremities, right leg | CPT/HCPCS: 73610; 73630 ==

== ENCOUNTER 2025-05-14 13:44 | Outpatient (REF) | payer MEDICARE, MEDICAID, SELFPAY ==
[2025-05-14 14:57] LABS: NT Pro B Type Natriuretic Pept 103.9 pg/mL (<300)
--- OUTSIDE RECORDS SUMMARY | 2025-05-14 17:52 | XMS_ITS | Patient Health Record ---
Author Organization [facility] [employer] Address [address] [place] [address] Support Name Relationship Address Phone Esteban Scherer Guarantor Unknown Unav ailable Reason For Referral No Information Plan Of Treatment No Information Insurance Providers Payer Name Payer Address Payer Phone Subscriber Number Group Number Insured Name Patient Relationship to Insured Coverage Start Date Coverage End Date [facility] [employer]. [address] [address] [place] [phone] [id number] 5 Esteban Wood Self - patient is the insured
== END 2025-05-14 13:45 | disposition home or self-care (01) ==
LOC: HO.LAB 13:44
PROVIDERS: PCP General Practice; Visit Provider General Practice
DX: R60.0 Localized edema (principal)
CPT/HCPCS: 36415; 73610; 73630; 80053; 83880; 85025; 85379

== ENCOUNTER 2025-05-15 08:13 | Outpatient (REF) | payer MEDICARE, MEDICAID, SELFPAY ==
--- NOTE | ~2025-05-15 | US_ITS ---
EXAMINATION: US TRIPLEX LOWER EXTREMITY, RIGHT CLINICAL INFORMATION: Edema, right lower extremity COMPARISON: None available. TECHNIQUE: Color-flow triplex imaging with spectral analysis and compression Doppler were performed on the right lower extremity. FINDINGS: Respiratory variation, normal compression and augmented flow are demonstrated in the interrogated right common femoral vein, superficial femoral vein, profunda femoral vein, popliteal vein and midcalf peroneal and posterior tibial venous segments. There is partial compressibility in the right greater saphenous vein in the distal thigh to the mid calf. . There is no Jerez's cyst. Nonspecific prominent inguinal lymph nodes. US/US venous duplex LE RT IMPRESSION: No acute deep venous thrombosis interrogated veins, right lower extremity. Negative for DVT. Nonocclusive thrombus, right greater saphenous vein in the distal thigh. Electronically signed by: Rigoberto Wynn MD 05/15/2025 08:50 AM EDT
== END 2025-05-15 08:14 | disposition home or self-care (01) ==
LOC: HO.US 08:13
PROVIDERS: PCP General Practice; Visit Provider Nurse Practitioner Family
DX: R79.89 Other specified abnormal findings of blood chemistry (principal); R60.0 Localized edema
CPT/HCPCS: 93971

== ENCOUNTER → 2025-05-15 08:26 | Outpatient (BNV) | payer MEDICARE, MEDICAID, SELFPAY | PROVIDERS: PCP General Practice; Visit Provider Radiology Diagnostic Radiology | DX: I82.811 Embolism and thrombosis of superficial veins of right lower extremity (principal) | CPT/HCPCS: 93971 ==

== ENCOUNTER 2025-05-23 10:46 | Outpatient (AMB) | payer MEDICARE, MEDICAID, SELFPAY ==
--- OUTSIDE RECORDS SUMMARY | 2016-02-27 04:48 | XMS_ITS | Continuity of Care Document ---
Author Organization [facility] Address [address] [place] [address] Phone Care Team Providers Care Reciprocating Drill Operator Name Role Phone Unavailable Unavailable Unavailable Allergies, Adverse Reactions, Alerts Substance Reaction Status Criticality IODINE Active No Information metformin Active No Information PIOGLITAZONE HCL Active No Informat ion ROSIGLITAZONE MALEATE Active No Inf ormation ATORVASTATIN CALCIUM Active No Info rmation Medications Medication Instructions Dosage Effective Dates (start - stop) Status Comments GLIPIZIDE (unknown strength) take 1 tablet by oral route every day before a meal Not Available - Active METOPROLOL TARTRATE (unknown strength) take 1 tablet by oral route 2 times every day Not Available - Active TRADJENTA (unknown strength) take 1 tablet by oral route every day Not Available - Active ASPIRIN (unknown strength) take 1 tablet by oral route every day Not Available - Active SIMVASTATIN (unknown strength) take 1 tablet by oral route every day in the evening Not Available - Active Procedures Procedure Date Office/outpt New Advance Directives Directive Yes / No Effective Date File Name No Information Encounters Encounter Description Practice Location Reason(s) For Visit Diagnoses Date Provider Providers Copied on Encounter [facility], [address] [place], [place], [id number], [place] tel:[phone] [facility] No Information 6 No Information Office/outpt [facility], [address], [place], [place], [id number], [place] tel:[phone] [facility] Memory Loss (chief complaint) Memory Loss 6 No Information Referring Provider: Tj Feng [address], [place], [address]. tel:[phone] Family History Family Member Type Diagnosis Age At Onset Problem (finding) Family history of Heart Conditions Problem (finding) Family history of Diabe shimon Payers Payer name Insurance type Covered republican ID Authoriza tidevorah(s) SIMPLY MEDICARE MB [id number] Social History Type Description Quantity Date Captured Comments Alcohol Use Details Unknown Caffeine Use Details Unknown Tobacco Use Status No Information Smoking Status No Information Sex Male Chief Complaint And Reason For Visit No Information Reason For Referral Reason For Referral No Information History Of Present Illness Encounter Date Complaint History Of Prese nt Illness Memory Loss Onset was 4 year s ago and it was gradual. Context: spontaneous. Pertinent negatives include agitation, ataxia, behavioral changes, bladder incontinence, bowel dysfunction, chorea, confusion, difficulty with ADLs, dizziness, falling, fever, gait disturbances, hallucinations, headache, hyperacusis, mood swings, neck stiffness, paresthesia, personality change, restlessness, sleep disturbances, speech difficulty, tingling, tremors and visual disturbances. Memory Loss (comments) He is her e with his . He's been having problems with memory for the past 4 years. Has not had any recent workup or tried medications.He gives history of having had some type of brain surgery done in 1993. Functional Status Date Functional Assessmen t No Information Instructions Date Instruction Additional Infor yoon Open brain MRILabs Related to Me stefan Loss Assessments Type Assessment Date No Information Patient Care Teams Name Effective Dates (start - stop) Status Members No Information
--- NOTE | 2025-05-23 11:11 | A.OFFVIS_ITS ---
Intake Visit Reasons: 3m/ Dementia Allergies atorvastatin (From Lipitor) Allergy (Unknown, Verified 02/15/25 08:52) Unknown rosiglitazone (From Avandia) Allergy (Unknown, Verified 02/15/25 08:52) Unknown HPI Comments Details: 79 years old man with dementia with behavioral symptomatology including agitation. He was living with his in his daughter was acting as SPLASH LINE OPERATOR. Apparently he was getting more and more confused at night and sometime hallucinating and waking his up. [facility] Medical History (Updated 02/21/25 @ 12:28 by Liya Bush MD) Alzheimer disease Dementia without behavioral disturbance Physical Exam Neuro Other: Mental Status: Alert and oriented to person, place, and time. Normal attention. Normal spontaneous speech, fluency, and comprehension. Cranial Nerves: CN II: Visual patel full to confrontation, visual acuity intact. CN III, IV, : Pupils equal, round, reactive to light and accommodation. Extraocular movements are normal. CN V: Facial sensation is normal. CN VII: Facial movements symmetrical. CN VIII: Hearing intact to bedside conversation is normal. CN IX, X: Palate elevates symmetrically. CN XI: Shoulder shrug and head turn symmetrical. CN XII: Tongue midline without atrophy or fasciculations. Coordination: [id number] and zddf-wg-[id number] testing normal. No dysmetria. Gait and Station: No obvious gait abnormality. No ataxia or instability. Extrapyramidal: Full facial expressions and blinking. No rigidity. Movements are appropriate with no tremor or abnormality. Speech: Normal; no dysarthria or tremor. Assessment & Plan Assessment & Plan (1) Dementia with behavioral disturbance: Comment: MRI brain [facility] at [facility] in December 2021: Brain OK, left occipital extracranial mass (later removed). Code(s): F03.918 - Unspecified dementia, unspecified severity, with other behavioral disturbance Category: Medical Plan Impression: Dementia with behavioral symptoms Rec: Quetiapine 50mg one at bedtime Medications: Refilled quetiapine 50 mg orally 1-2 at bedtime; 90 tabs 1RF Coding Level of Care Code Est Pt Level 4 (97877) Diagnoses Dementia with behavioral disturbance F03.918
--- OUTSIDE RECORDS SUMMARY | 2025-05-23 13:05 | XMS_ITS | Encounter Summary ---
Author Organization [employer] Address [address] [facility] 7t [place] [address] Care Team Providers Care Coin Collector Name Role Phone Hortencia Gamboa MD Primary Care Provider [phone] Encounter Details Date Type Department Care Team (Late st Contact Info) Description 06/08/2024 Orders Only [facility] MEDICINE [address] [place], [place] [phone] Hortencia Gamboa MD [address] [place] [address] Social History Tobacco Use Types Packs/Day Years [...] Description 06/19/2025 10:30 AM EST Office Visit [facility] OPTOMETRY [address] [place] [address] Pasha, Saida, OD [address] [place] [address] 07/24/2025 10:30 AM EST Office Visit [facility] MEDICINE [address] [place] [address] Hortencia Gamboa MD [address] [place] [address] documented as of this encounter Visit Diagnoses Not on filedocumented in this encounter Additional Health Concerns Assessment Noted Time PHQ-9 Depression Total Score: 0 09/20/19 24 9:48 AM EST documented as of this encounter Care Teams Coin Collector Relationship Specialty Start Date End Date Hortencia Gamboa MD [address] [place] [address] PCP - General Family Medicine 03/10/22 documented as of this encounter
--- OUTSIDE RECORDS SUMMARY | 2025-05-23 13:05 | XMS_ITS | Encounter Summary ---
Author Organization [employer] Address [address] [facility] [address] [place] [address] Care Team Providers Care Utilization Management Um Nurse Name Role Phone Hortencia Gamboa MD Primary Care Provider [phone] Reason for Visit * Reason Comments Med Refill Encounter Details Date Type Department Care Team ([facility] Contact Info) Description 09/25/2024 Refill [facility] MEDICINE [address] [place] [address] Vanna Rosenbaum MD [address] [place], [place] [phone] Type 2 diabetes mellitus with hyperglycemia (CMS/HCC) [...] Description 06/19/2025 10:30 AM EST Office Visit [facility] OPTOMETRY [address] [place] [address] Pasha, Saida, OD [address] [place] [address] 07/24/2025 10:30 AM EST Office Visit [facility] MEDICINE [address] [place] [address] Hortencia Gamboa MD [address] [place] [address] documented as of this encounter Visit Diagnoses Diagnosis Type 2 diabetes mellitus with hyperglycemia (HCC) documented in this encounter Additional Health Concerns Assessment Noted Time PHQ-9 Depression Total Score: 0 09/20/19 24 9:48 AM EST documented as of this encounter Care Teams Utilization Management Um Nurse Relationship Specialty Start Date End Date Hortencia Gamboa MD [address] [place] [address] PCP - General Family Medicine 03/10/22 documented as of this encounter
--- OUTSIDE RECORDS SUMMARY | 2025-05-23 13:05 | XMS_ITS | Clinical Summary ---
Author Organization [employer] Address [address] [facility] 7[address] [place] [address] Care Team Providers Care Maintenance Fitter Name Role Phone Hortencia Gamboa MD Primary Care Provider [phone] Allergies Active Allergy Reactions Criticality Noted Date Comments Atorvastatin 03/24/2021 Other reaction(s): Chest pain Metformin 03/24/2021 Other reaction(s): Rash, Rash Pioglitazone 12/21/2011 Rosiglitazone 12/21/2011 Other reaction(s): Metformin adverse reaction Sertraline 03/24/2021 Other reaction(s): Drowsy Shellfish Allergy 11/30/2022 anaphylaxis Medications Blood Pressure Monitoring (Omron 3 Series BP Monitor) device USE DIRECTED 08/08/19 24 Active Blood Pressure Monitor kit Use as directed 1 kit 08/23/19 24 Active Blood Glucose Monitoring Suppl (Accu-Chek Nette Plus) w/Device kitIndications:T ype 2 diabetes mellitus with hyperglycemia, without long-term current use of insulin ([facility]) TEST BLOOD SUGAR TWICE DAILY DIRECTED 1 kit 02/15/20 24 Active Blood Glucose Monitoring Suppl (FreeStyle Lite) device Inject 1 each under the skin 2 times daily. Use to check blood sugar 2x daily. 1 each 02/15/20 24 Active ustekinumab (Stelara) 45 MG/0.5ML injectionIndicat ions:Psoriasis Inject 45 mg at 0 and 4 weeks and then 45 mg every 12 weeks thereafter 0.5 mL 11 03/30/20 24 Active clobetasol (Temovate) 0.05 % cream MIX WITH cerave AND APPLY A THIN LAYER TO AFFECTED AREA(S) TWICE DAILY 60 g 5 03/30/20 24 Active QUEtiapine (SEROquel) 25 MG tablet Take 25 mg by mouth at bedtime. 05/03/20 24 Active FREESTYLE LITE test strip 1 each by Other route 4 times daily. Use to check blood sugar 2x daily. 100 each 12 06/08/20 24 Active TRUEplus Lancets 33G misc 1 each by Percutaneous route Once daily. 100 each 06/26/20 24 Active glucose blood (Accu-Chek Nette Plus) test stripIndications :Type 2 diabetes mellitus with hyperglycemia (HCC) Use to check BS once daily 100 strip 11 06/26/20 24 Active cholecalciferol (Vitamin D-3) 125 MCG (5000 UT) tabletIndication s:Vitamin D deficiency TAKE 1 TABLET BY MOUTH EVERY MORNING 90 tablet 3 08/07/19 25 Active Aspirin Low Dose 81 MG EC tablet TAKE 1 TABLET BY MOUTH EVERY MORNING 90 tablet 08/07/19 25 Active Trulicity 0.75 MG/0.5ML solution auto-injector INJECT ONE PEN (=0.75MG) SUBCUTANEOUSLY ONCE A WEEK DIRECTED 2 mL 09/26/19 25 Active Alcohol Swabs (Alcohol Prep) 70 % pads USE DIRECTED TO CLEAN SKIN TWICE DAILY 100 each 10/12/19 25 Active metoprolol tartrate (Lopressor) 25 MG tablet TAKE 1/2 TABLET BY MOUTH TWICE DAILY IN THE MORNING AND AT BEDTIME 90 tablet 3 12/19/19 25 Active Diclofenac Sodium 1 % gel Apply 1 Application topically if needed in the morning, at noon, in the evening, and at bedtime (for hand pain). Apply to painful areas of hands. 150 g 5 01/30/20 25 Active Stelara injection INJECT 45 MG AT 0 AND 4 WEEKS, THEN INJECT 45 MG EVERY 12 WEEKS THEREAFTER 12/18/19 25 Active ammonium lactate (Lac-Hydrin) 12 % lotion Apply topically if needed for dry skin. 400 g 3 02/13/20 25 Active simvastatin (Zocor) 20 MG tablet TAKE 1 TABLET BY MOUTH EVERY DAY AT BEDTIME 90 tablet 3 04/15/20 25 Active rivaroxaban (Xarelto) 10 MG tabletIndication s:Superficial thrombosis of leg, right Take 1 tablet (10 mg) by mouth Once per day. 45 tablet 05/15/20 25 Active clopidogrel (Plavix) 75 MG tablet TAKE 1 TABLET BY MOUTH AT BEDTIME 90 tablet 3 12/19/19 25 10/30/2 025 Discontin ued(Thera py completed ) Active Problems Problem Noted Date Diagnosed Date [...] use of insulin 09/20/2023 Assessment & Plan (05/17/2025 8:59 AM EDT): Orders: POCT glucose manually resulted Assessment [...] family stressors Hypertension 12/17/2011 Assessment & Plan (05/17/2025 8:59 AM EDT): BP well controlled at home. Continue [...] Encounters Date Type Department Care Team Description 05/16/2025 Telephone [facility] [address] [place] [phone] Nicky Coleman NP 05/15/2025 Results Follow-Up [address] [address] Venessa Romero NP US VENOUS DUPLEX LE RT 05/14/2025 Orders Only [facility] [address] [place] [phone] Hortencia Gamboa MD 05/14/2025 Telephone [facility] [address] [place] [phone] Venessa Romero NP 05/14/2025 Telephone [facility] PEDIATR[facility] [address] [place] [phone] Hortencia Gamboa MD Critical lab results 05/10/2025 3:00 PM EDT Office Visit [facility] [address] [place] [phone] Hortencia Gamboa MD Edema of right foot (Primary Dx); Type 2 diabetes mellitus with diabetic neuropathy, without long-term current use of insulin (HCC); Primary hypertension; Hypertensive heart and chronic kidney disease with heart failure and stage 1 through stage 4 chronic kidney disease, or unspecified chronic kidney disease (HCC); Mild ankle edema 05/10/2025 Travel 05/09/2025 Telephone [facility] [address] [place], [place] [phone] Hortencia Gamboa MD Nurse Triage 05/09/2025 Telephone [facility] [address] [place] [address] Hortencia Gamboa MD 05/09/2025 Telephone [facility] [address], [place] [phone] Hortencia Gamboa MD recall 04/14/2025 Refill [facility] [address] [place], [place] [phone] Hortencia Gamboa MD from Last 3 Months Immunizations Immunization Administration Dates Next Due Hep A, Adult 05/14/2022,09/06/2012 Hep B, adult 02/19/2022,,10/05/2012,09/06 Influenza High-dose Quadriva lent Preservative Free 04/04/2023,05/14/2022,04/22/2021 Influenza, IIV3, injectable 08/18/2012, [address] [place] SARS-CoV-2 Vaccination 10/19/2020 Pfizer Covid-19 Vaccine 12+ [...] with others, in a hotel, in a fpc, living outside on the street, on a [...] Description 06/19/2025 10:30 AM EST Office Visit [facility] OPTOMETRY [address] [place] [address] Saida Pak, OD [address] [place] [address] 07/24/2025 10:30 AM EST Office Visit [facility] [address] [place] [address] Hortencia Gamboa MD [address] [place], [place] [phone] Health Maintenance Due Date Last Done Comments [...] Procedure Name Priority Date/Time Associated Diagnosis Comments US VENOUS DUPLEX LE RT Routine 8:26 AM EDT NT-PROBNP Routine 05/14/2025 1:57 PM EDT COMPREHENSIVE METABOLIC PANEL Routine 05/14/2025 10:05 AM EDT Edema of right foot D DIMER HIGH SENSITIVITY STAT 05/14/2025 10:05 AM EDT Edema of right foot CBC WITH AUTO DIFFERENTIAL Routine 05/14/2025 10:05 AM EDT Edema of right foot XR ANKLE 3+ VIEWS RIGHT Routine 05/14/2025 9:55 AM EDT Edema of right foot XR FOOT 3+ VIEWS RIGHT Routine 9:55 AM EDT Edema of right foot POCT GLYCATED HEMOGLOBIN, TOTAL Routine 02/12/2025 11:10 AM EDT Type 2 diabetes mellitus with diabetic neuropathy, without long-term current use of insulin (CMS/HCC) PROTEIN CREATININE RATIO, URINE Routine 01/22/2025 2:08 PM EDT Bilateral hand swelling LIPID PANEL, STANDARD Routine 12/26/2023 11:08 AM EDT Type 2 diabetes mellitus with diabetic neuropathy, without long-term current use of insulin (CMS/HCC) ZZZ HISTORICAL HEPATITIS C AB W/REFL TO HCV RNA, QN, PCR Routine 08/19/2021 10:58 AM EST from Last 3 Months or Most Recently Relevant to Health Maintenance Results * US VENOUS DUPLEX LE RT (05/15/2025 8:26 AM EDT) Anatomical Region Laterality Modality Abdomen Ultrasound 05/15/2025 8:26 AM EDT Narrative 05/15/2025 8:53 AM EDT [place] [address] Ultrasound Report Signed Patient: Esteban Oleary MR#: [id number] : 1945 Acct:[id number] Age/Sex: 79 / M ADM Date: 05/15/25 Loc: HO.US Attending Dr: Venessa Romero NP Ordering Physician: Venessa Romero NP Date of Service: 05/15/25 Procedure(s): US venous duplex LE RT Accession Number(s): [id number] cc: Venessa Romero REPAIR SERVICER; Hortencia Gamboa Reason for Exam: elevated d-dimer, right lower extremity edema EXAMINATION: US TRIPLEX LOWER EXTREMITY, RIGHT CLINICAL INFORMATION: Edema, right lower extremity COMPARISON: None available. TECHNIQUE: Color-flow triplex imaging with spectral analysis and compression Doppler were performed on the right lower extremity. FINDINGS: Respiratory variation, normal compression and augmented flow are demonstrated in the interrogated right common femoral vein, superficial femoral vein, profunda femoral vein, popliteal vein and midcalf peroneal and posterior tibial venous segments. There is partial compressibility in the right greater saphenous vein in the distal thigh to the mid calf. . There is no Jerez's cyst. Nonspecific prominent inguinal lymph nodes. US/US venous duplex LE RT IMPRESSION: No acute deep venous thrombosis interrogated veins, right lower extremity. Negative for DVT. Nonocclusive thrombus, right greater saphenous vein in the distal thigh. Electronically signed by: Rigoberto Wynn MD 05/15/2025 08:50 AM EDT RP Dictated By: Rigoberto Mckenzie MD Signed By: <Electronically signed by Rigoberto Hutchison MD in OV> 05/15/25 0850 DD/ 0826 TD/TT: 05/15/25 0841 Razor Sharpener: Procedure Note Donotuseinterpreter, Image - 05/15/2025 [place] [address] Ultrasound Report Signed Patient: Hunter Oleary#: [id number] : 6Acct:[id number] Age/Sex: 79 / MADM Date: 05/15/25 Loc: . Attending Dr: Venessa Romero NP Ordering Physician: Venessa Romero NP Date of Service: 05/15/25 Procedure(s): US venous duplex LE RT Accession Number(s): [id number] cc: Venessa Romero REPAIR SERVICER; Hortencia Gamboa Reason for Exam: elevated d-dimer, right lower extremity edema EXAMINATION: US TRIPLEX LOWER EXTREMITY, RIGHT CLINICAL INFORMATION: Edema, right lower extremity COMPARISON: None available. TECHNIQUE: Color-flow triplex imaging with spectral analysis and compression Doppler were performed on the right lower extremity. FINDINGS: Respiratory variation, normal compression and augmented flow are demonstrated in the interrogated right common femoral vein, superficial femoral vein, profunda femoral vein, popliteal vein and midcalf peroneal and posterior tibial venous segments. There is partial compressibility in the right greater saphenous vein in the distal thigh to the mid calf. . There is no Jerez's cyst. Nonspecific prominent inguinal lymph nodes. US/US venous duplex LE RT IMPRESSION: No acute deep venous thrombosis interrogated veins, right lower extremity. Negative for DVT. Nonocclusive thrombus, right greater saphenous vein in the distal thigh. Electronically signed by: Rigoberto Wynn MD 05/15/2025 08:50 AM EDT RP Dictated By: Rigoberto Mckenzie MD Signed By: <Electronically signed by Rigoberto Hutchison MDin OV> 05/15/2550 DD/ 5 TD/TT: 05/15/25 08 Razor Sharpener: us Venessa Romero NP IMG US PROCEDURES Final Result * NT-proBNP (05/14/2025 1:57 PM EDT) NT-proBNP 103.9 <300 pg/mL [facility] Comment:Reference Range:Age Group (years) NT-proBNP (pg/ml) InterpretationAll <300 Negative: HF unlikelyFor patients presenting to the ED with clinical suspicion ofnew onset or worsening HF, see below:18 to <50 >299.9 to <450.0 Grayzone: [id number] to 75 >299.9 to <900.0 other causes of>75 >299.9 to <1800.0 NT-proBNP beizfvmhi18 to <50 >449.9 Positive: HF plmqwe44-50 >899.9>75 >1799.9Note: Elevated NT-proBNP levels should be interpreted inthe context of other clinical information. 05/14/2025 1:57 PM EDT 05/14/2025 1:57 PM EDT us Hortencia Gamboa MD LAB BLOOD ORDERABLES Final Res ult [facility] [address] [place] [phone] [phone] * D Dimer High Sensitivity (05/14/2025 10:05 AM EDT) Pathologist [facility] D Dimer High Sensitivity 269 NG/ML [facility] Comment:Results of DDIMER ca lled to GALEN Stoner on 05/14/25at 1129 by ELIZABETH.D- DIMER HS REFERENCE RANGENote: Our assay reports D-Dimer Units (D-DU).The cut-off value for venous thromboembolic (VTE) disease is230 ng/mL. This value has a very high negative predictivevalue when the patient has a low to moderate clinicalprobability of VTE.The upper limit of normal is 243 ng/mL. Blood 05/14/2025 10:0 5 AM EDT 05/14/2025 11:02 AM EDT us Hortencia Gamboa MD LAB BLOOD ORDERABLES Final Res ult Performing Organization Address [facility] de Phone Number [facility] [address] [place] [address] [phone] * (ABNORMAL) CBC auto differential (05/14/2025 10:05 AM EDT) [facility] White Blood Count 7.4 4.8 - 10.8 X10*3/uL [facility] Red Blood Count 4.48(L) 4.60 - 5.80 X10*6/uL [facility] Hemoglobin 13.1(L) 14.0 - 18.0 g/dl [facility] Hematocrit 40.4(L) 42.0 - 52.0 % [facility] Mean Corpuscular Volume 90.2 80.0 - 98.0 fL [facility] Mean Corpuscular Hemoglobin 29.2 27.0 - 33.0 pg [facility] Mean Corpuscular HGB Conc 32.4 31.0 - 36.0 g/dl [facility] Red Cell Distribution Width 13.8 11.0 - 16.0 % [facility] Platelet Count 197 160 - 400 X10*3/uL [facility] Mean Platelet Volume 9.9 9.4 - 12.4 fL [facility] Neutrophils Percent Auto 60.8 45 - 73 % [facility] Imm Gran Pct Auto 0.3 0.0 - 0.4 % [facility] Lymphocytes Percent Auto 28.5 20 - 40 % [facility] Monocytes Percent Auto 8.3 2 - 11 % [facility] Eosinophils Percent Auto 1.4 0 - 4 % [facility] Basophils Percent Auto 0.7 0 - 2 % [facility] NRBC Pct Auto 0.0 0.0 - 0.2 /100WBC [facility] Neutrophils Absolute Auto 4.5 2.0 - 8.3 x10*3/uL [facility] Imm Gran Abs Auto 0.02 0.00 - 0.03 X10*3/uL [facility] Lymphocytes Absolute Auto 2.1 1.2 - 4.9 X10*3/uL [facility] Monocytes Absolute Auto 0.6 0.1 - 1.2 X10*3/uL [facility] Eosinophils Absolute Auto 0.1 0.0 - 0.4 X10*3/uL [facility] Basophils Absolute Auto 0.1 0.0 - 0.2 X10*3/uL [facility] NRBC Abs Auto 0.000 0.0 - 0.012 X10*3/uL [facility] Blood Venous blood specimen / Unknown 05/14/2025 10:05 AM EDT 05/14/2025 11:02 AM EDT us Hortencia Gamboa MD LAB BLOOD ORDERABLES Final Res ult [facility] [address] [place] [phone] * (ABNORMAL) Comprehensive Metabolic Panel (05/14/2025 10:05 AM EDT) Sodium 141 135 - 145 mmol/L [facility] Potassium 4.2 3.3 - 5.1 mmol/L [facility] Chloride 108 96 - 108 mmol/L [facility] Carbon Dioxide 27 22 - 29 mmol/L [facility] Anion Gap 10(L) 12 - 20 [facility] Urea Nitrogen (BUN) 15 9 - 16 mg/dL [facility] Creatinine, Serum 0.79 0.5 - 1.4 mg/dL [facility] Estimated Glomerular Filt Rate >60 [facility] Comment:Chronic Kidney Disea se: Estimated GFR < 60 mL/min/1.85u2Bwpsmp Kidney Disease: Estimated GFR < 15 mL/min/1.73m2 Glucose 82 60 - 115 mg/dL [facility] Calcium 9.5 8.4 - 10.2 mg/dL [facility] Bilirubin, Total 0.6 0.0 - 1.0 mg/dL [facility] Aspartate Amino Transferase 27 5 - 37 U/L [facility] Alanine Aminotransferase 27 0 - 40 U/L [facility] Total Protein 7.0 6.5 - 8.0 g/dL [facility] Albumin Level 4.0 3.5 - 5.0 g/dL [facility] Alkaline Phosphatase 58 39 - 117 U/L [facility] Blood Venous blood specimen / Unknown 05/14/2025 10:05 AM EDT 05/14/2025 11:02 AM EDT us Hortencia Gamboa MD LAB BLOOD ORDERABLES Final Res ult [facility] [address] [place] [phone] * XR Foot 3+ Views Right (05/14/2025 9:55 AM EDT) Anatomical Region Laterality Modality Lower Extremities, Foot Right Radiogra phic Imaging 05/14/2025 9:55 AM EDT Narrative 05/14/2025 10:07 AM EDT [address] [address] XRay Report Signed Patient: Esteban Oleary MR#: [id number] : 1945 Acct:[id number] Age/Sex: 79 / M ADM Date: 05/14/25 Loc: HO.[facility] Attending Dr: Hortencia Gamboa MD Ordering Physician: Hortencia Gamboa Date of Service: 05/14/25 Procedure(s): XR foot RT min 3V Accession Number(s): [id number] cc: Hortencia Gamboa Reason for Exam: Previous [...] 05/14/25 1005 DD/ 0955 TD/TT: 05/14/25 1001 Razor Sharpener: Procedure Note Donotuseinterpreter, Image - 05/14/[address] [address] XRay Report Signed Patient: Hunter Oleary#: [id number] : 6Acct:[id number] Age/Sex: 79 / MADM Date: 05/14/25 Loc: HO.[facility] Attending Dr: Hortencia Gamboa MD Ordering Physician: Hortencia Gamboa Date of Service: 05/14/25 Procedure(s): XR foot RT min 3V Accession Number(s): [id number] cc: Hortencia Gamboa Reason for Exam: Previous [...] 05/14/25 1005 DD/ 0955 TD/TT: 05/14/25 1001 Razor Sharpener: Hortencia Gamboa MD IMG XR PROCEDURES Final Result * XR Ankle 3+ Views Right (05/14/2025 9:55 AM EDT) Anatomical Region Laterality Modality Lower Extremities, Ankle Right Radiogr aphic Imaging 05/14/2025 9:55 AM EDT Narrative 05/14/2025 10:07 AM EDT [place] [address] XRay Report Signed Patient: Esteban Oleary MR#: [id number] : 1945 Acct:[id number] Age/Sex: 79 / M ADM Date: 05/14/25 Loc: [facility] Attending Dr: Hortencia Gamboa MD Ordering Physician: Hortencia Gamboa Date of Service: 05/14/25 Procedure(s): XR ankle RT min 3V Accession Number(s): [id number] cc: Hortencia Gamboa Reason for Exam: previous [...] 05/14/25 1005 DD/ 0955 TD/TT: 05/14/25 1001 Razor Sharpener: Procedure Note Donotuseinterpreter, Image - 05/14/[address] [address] XRay Report Signed Patient: Hunter Oleary#: [id number] : 6Acct:[id number] Age/Sex: 79 / MADM Date: 05/14/25 Loc: .[facility] Attending Dr: Hortencia Gamboa MD Ordering Physician: Hortencia Gamboa Date of Service: 05/14/25 Procedure(s): XR ankle RT min 3V Accession Number(s): [id number] cc: Hortencia Gamboa Reason for Exam: previous [...] 05/14/25 1005 DD/ 0955 TD/TT: 05/14/25 1001 Razor Sharpener: Hortencia Gamboa MD IMG XR PROCEDURES Final Result * (ABNORMAL) POCT HGB A1C (02/12/2025 11:10 AM EDT) Hemoglobin A1C 6.3(A) 4.0 - 5.7 % QC Media Lot # [id number] Lot# Expiration Date Blood 02/12/2025 11:1 0 AM EDT Hortencia Gamboa MD POINT OF CARE TEST ENTER/EDIT ORDERABLES Final Result * Protein Creatinine Ratio, Urine (01/22/2025 2:08 PM EDT) Creatinine, Urine 83.87 mg/dL [facility] Protein, Total, Random Urine <7 <12 mg/dL [facility] Protein/Creatin ine Ratio, Ur TNP <0.2 [facility] Comment:Unable to calculate urine protein creatinine ratio due tolow creatinine or protein result. 01/22/2025 2:08 PM EDT 01/22/2025 5:14 PM EDT Elizabeth Rogers MD LAB URINE ORDERABLES Final Re sult [facility] [address] [place] [phone] * (ABNORMAL) Lipid Panel, Standard (12/26/2023 11:08 AM EDT) Triglycerides 78 <150 mg/dL [facility] Comment:Desirable Triglyceri de: less than 150 mg/dLBorderline High Triglyceride 150-199 mg/dLHigh Triglyceride: 200-499 mg/dLVery High Triglyceride: greater than or equal to 5OO mg/dL Cholesterol 140 <200 mg/dL [facility] Comment:Desirable Cholestero l: less than 200 mg/dLBorderline High Cholesterol: 200-239 mg/dLHigh Cholesterol: greater than 239 mg/dL LDL Cholesterol Calculated 88 <100 mg/dL [facility] Comment:Desirable LDL: less than 100 mg/dLNear Optimal/Above Optimal LDL: 110- 129 mg/dLBorderline High LDL: 130-159 mg/dLHigh LDL: 160-189 mg/dLVery High LDL: greater than or equal to 190 mg/dL HDL Cholesterol 37(L) >40 mg/dL [facility] Comment:Desirable HDL: great er than 40 mg/dL Note: This HDL assay may give artificially low results in patients with liver disease. Blood Venous blood specimen / Unknown 12/26/2023 11:08 AM EDT 12/26/2023 1:05 PM EDT us Hortencia Gamboa MD LAB BLOOD ORDERABLES Final Res ult [facility] [address] [place] [phone] * HEPATITIS C AB W/REFL TO HCV RNA, QN, PCR (08/19/2021 10:58 AM EST) HEPATITIS C ANTIBODY NON-REACT SUAD NON-REACT SUAD [facility] INDEX 0.02 <1.00 [facility] Comment: HCV antibody was non-reactive. There is no laboratory evidence of HCV infection. In most cases, no further action is required. However, if recent HCV exposure is suspected, a test for HCV RNA (test code 56551) is suggested. For additional information please refer to http://education.[employer] [place]/faq/QNH47k0 (This link is being provided for informational/ educational purposes only.) 08/19/2021 10:5 8 AM EST us Rahel Jerez REPAIR SERVICER HISTORICAL/NON ORDERABLE LABS F inal Result [facility] [address] from Last 3 Months or Most Recently Relevant to Health Maintenance Insurance [facility] STANDARD [place] [phone] Care Teams Maintenance Fitter Relationship Specialty Start Date End Date Hortencia Gamboa MD [address] [place] [phone] PCP - General Family Medicine 03/10/22
--- OUTSIDE RECORDS SUMMARY | 2025-05-23 13:05 | XMS_ITS | Patient Health Record ---
Author Organization [facility] Doctor Today Address [address] [facility] [address] [place] [address] Support Name Relationship Address Phone Esteban Scherer Guarantor Unknown Unav ailable Reason For Referral No Information Plan Of Treatment No Information Insurance Providers Payer Name Payer Address Payer Phone Subscriber Number Group Number Insured Name Patient Relationship to Insured Coverage Start Date Coverage End Date [facility]. [address] [address] [place] [phone] [id number] Esteban Wood Self - patient is the insured
--- OUTSIDE RECORDS SUMMARY | 2025-05-23 13:05 | XMS_ITS | Encounter Summary ---
Author Organization [employer] Address [address] [facility] 7[address] [place] [address] Care Team Providers Care Foreign Broadcast Specialist Name Role Phone Hortencia Gamboa MD Primary Care Provider [phone] Encounter Details Date Type Department Care Team (Late st Contact Info) Description 02/14/[address] [facility] MED[facility] [address] [place], [place] [phone] Juan Koo MD [address] [place] [address] Social History Tobacco Use Types Packs/Day Years [...] Description 06/19/2025 10:30 AM EST Office Visit [facility] OPTOMETRY [address] [place] [address] Pasha, Saida, OD [address] [place] [address] 07/24/2025 10:30 AM EST Office Visit [facility] MED[facility] [address] [place] [address] Hortencia Gamboa MD [address] [place] [address] documented as of this encounter Visit Diagnoses Not on filedocumented in this encounter Additional Health Concerns Assessment Noted Time PHQ-9 Depression Total Score: 0 09/20/19 24 9:48 AM EST documented as of this encounter Care Teams Foreign Broadcast Specialist Relationship Specialty Start Date End Date Hortencia Gamboa MD [address] [place] [address] PCP - General Family Medicine 03/10/22 documented as of this encounter
== END 2025-05-23 12:18 | disposition home or self-care (01) ==
LOC: HO.HSM 10:47
PROVIDERS: PCP General Practice; Visit Provider Psychiatry & Neurology Neurology
DX: F03.918 Unspecified dementia, unspecified severity, with other behavioral disturbance (principal)
CPT/HCPCS: 99214

== ENCOUNTER → 2025-05-23 10:46 | Outpatient (BNVA) | payer MEDICARE, MEDICAID, SELFPAY | PROVIDERS: PCP General Practice; Visit Provider Psychiatry & Neurology Neurology | DX: F03.918 Unspecified dementia, unspecified severity, with other behavioral disturbance (principal); F03.92 Unspecified dementia, unspecified severity, with psychotic disturbance | CPT/HCPCS: 99212 ==